=== PATIENT | female | born 2000 | race Caucasian/White ===

== ENCOUNTER 2022-06-19 14:30 | Outpatient (REF) | payer MEDICAID, SELFPAY ==
--- NOTE | ~2022-06-19 | US_ITS ---
EXAMINATION: US DIAGNOSTIC ULTRASOUND BREAST, RIGHT CLINICAL INFORMATION: 22-year-old with recent olive-sized palpable concern upper outer right breast for 1-2 weeks; no longer palpable. No discharge. No prior breast imaging. Family history breast cancer, grandmother. COMPARISON: None (current study represents initial baseline exam). TECHNIQUE: Ultrasound of the right breast is targeted to the area of clinical concern. Patient is able to point to the vicinity of recent palpable concern at time of imaging. Patient does not palpate the finding at time of visit. Grayscale imaging and color Doppler are performed without and with harmonics. FINDINGS: There is no focal suspicious finding. There is no cystic or solid mass, architectural abnormality, duct ectasia, or edema in the soft tissue planes. Results are discussed with the patient at time of visit.. US/US breast RT limited IMPRESSION: Normal study. ASSESSMENT: BI-RADS 1: Negative RECOMMENDATION: Patient should be managed based on the clinical impression, greatest medial.
== END 2022-06-19 14:31 | disposition home or self-care (01) ==
LOC: HO.MAMMO 14:30
PROVIDERS: Visit Provider Student in an Organized Health Care Education/Training Program
DX: N63.11 Unspecified lump in the right breast, upper outer quadrant (principal)
CPT/HCPCS: 76642

== ENCOUNTER 2022-12-16 14:34 | Outpatient (REF) | payer MEDICAID, SELFPAY ==
[2022-12-16 18:55] LABS: CT PCR DETECTED (Not Detect.); NG PCR NOT DETECTED (Not Detect.)
[2022-12-17 04:06] LABS: HBS Num1 85.15 mIU/mL (0-7.99); HBsAGNum1 0.43 S/CO (0.00-0.99); HIV AB/AG Nonreactive (Nonreactive); HIV Num 1 0.07 S/CO (0.00-0.99); Hepatitis B Surface Antigen Negative (Negative); ~HepC Num1 0.12 S/CO (0.00-0.79); ~Hepatitis B Surface Antibody REACTIVE (Nonreactive); ~Hepatitis C Antibody Nonreactive (Nonreactive)
[2022-12-17 04:39] LABS: Syphilis Screen Nonreactive (Nonreactive)
== END 2022-12-16 14:35 | disposition home or self-care (01) ==
LOC: HO.HHCL 14:34
PROVIDERS: Visit Provider Internal Medicine Geriatric Medicine
DX: Z11.3 Encounter for screening for infections with a predominantly sexual mode of transmission (principal); Z11.4 Encounter for screening for human immunodeficiency virus [HIV]; N89.8 Other specified noninflammatory disorders of vagina
CPT/HCPCS: 0353U; 86706; 86780; 86803; 87340; 87389

== ENCOUNTER 2023-01-16 17:49 | Outpatient (REF) | payer MEDICAID, SELFPAY | END 2023-01-16 17:50 | disposition home or self-care (01) | LOC: HO.HHCLNP 17:49 | PROVIDERS: Visit Provider Registered Nurse | DX: N89.8 Other specified noninflammatory disorders of vagina (principal) | CPT/HCPCS: 87480; 87510; 87660 ==

== ENCOUNTER 2023-02-10 19:48 | Outpatient (REF) | payer MEDICAID, SELFPAY ==
[2023-02-11 01:23] LABS: CT PCR DETECTED (Not Detect.); NG PCR NOT DETECTED (Not Detect.)
[2023-02-11 11:20] LABS: BV Int Neg Control Negative (Negative); BV Int Pos Control Positive (Positive)
== END 2023-02-10 19:49 | disposition home or self-care (01) ==
LOC: HO.HHCLNP 19:48
PROVIDERS: Visit Provider Internal Medicine Geriatric Medicine
DX: Z11.3 Encounter for screening for infections with a predominantly sexual mode of transmission (principal)
CPT/HCPCS: 0353U; 87480; 87510; 87660

== ENCOUNTER 2023-03-16 12:41 | Outpatient (REF) | payer MEDICAID, SELFPAY ==
[2023-03-17 10:58] LABS: CT PCR NOT DETECTED (Not Detect.); NG PCR NOT DETECTED (Not Detect.)
[2023-03-17 14:27] LABS: BV Int Neg Control Negative (Negative); BV Int Pos Control Positive (Positive)
[2023-03-18 10:04] LABS: RPR Rapid Plasma Reagin NON-REACTIVE (NON-REACTIVE)
[2023-03-19 13:33] LABS: HIV RNA PCR Qn Copies Not Detected Copies/mL; HIV RNA PCR Qn Log Copies Not Detected Log cps/mL
== END 2023-03-16 12:42 | disposition home or self-care (01) ==
LOC: HO.HHCL 12:41
PROVIDERS: Visit Provider Nurse Practitioner Family
DX: Z11.3 Encounter for screening for infections with a predominantly sexual mode of transmission (principal)
CPT/HCPCS: 0353U; 36415; 86592; 87480; 87510; 87536; 87660; 87900

== ENCOUNTER 2023-05-04 17:25 | Outpatient (REF) | payer MEDICAID, SELFPAY ==
[2023-05-05 12:30] LABS: BV Int Neg Control Negative (Negative); BV Int Pos Control Positive (Positive)
[2023-05-08 00:03] LABS: C. trachomatis RNA TMA NOT DETECTED (NOT DETECTED); N. gonorrhoeae RNA TMA NOT DETECTED (NOT DETECTED); Trichomonas (NAAT) NOT DETECTED (NOT DETECTED)
== END 2023-05-04 17:26 | disposition home or self-care (01) ==
LOC: HO.HHCLNP 17:25
PROVIDERS: Visit Provider Advanced Practice Midwife
DX: Z12.4 Encounter for screening for malignant neoplasm of cervix (principal); Z11.3 Encounter for screening for infections with a predominantly sexual mode of transmission
CPT/HCPCS: 36415; 87480; 87491; 87510; 87591; 87660; 87661; 88142

== ENCOUNTER 2023-06-15 09:48 | Outpatient (REF) | payer MEDICAID, SELFPAY ==
[2023-06-15 11:32] LABS: MANUAL DIFF FLAG NO
[2023-06-15 11:49] LABS: Basophils Percent Auto 0.3 % (0-2); Eosinophils Absolute Auto 0.4 X10*3/uL (0.0-0.4); Eosinophils Percent Auto 6.7 % (0-4); Hematocrit 36.9 % (37.0-47.0); Hemoglobin 11.6 g/dl (12.0-16.0); Imm Gran Abs Auto 0.01 X10*3/uL (0.00-0.03); Imm Gran Pct Auto 0.2 % (0.0-0.4); Lymphocytes Absolute Auto 2.4 X10*3/uL (1.2-4.9); Lymphocytes Percent Auto 40.3 % (20-40); Mean Corpuscular HGB Conc 31.4 g/dl (31.0-35.0); Mean Corpuscular Hemoglobin 23.1 pg (27.0-33.0); Mean Corpuscular Volume 73.4 fL (80.0-98.0); Monocytes Absolute Auto 0.4 X10*3/uL (0.1-1.2); Monocytes Percent Auto 5.9 % (2-11); Neutrophils Absolute Auto 2.8 x10*3/uL (2.0-8.3); Neutrophils Percent Auto 46.6 % (45-73); Platelet Count 224 X10*3/uL (160-400); Red Blood Count 5.03 X10*6/uL (4.20-5.50); Red Cell Distribution Width 13.3 % (11.0-16.0)
[2023-06-15 12:02] LABS: Alanine Aminotransferase 17 U/L (0-31); Albumin Level 4.9 g/dL (3.5-5.0); Alkaline Phosphatase 52 U/L (39-117); Anion Gap 12 (12-20); Aspartate Amino Transferase 19 U/L (5-31); Bilirubin Total 0.6 mg/dL (0.0-1.0); Blood Urea Nitrogen 14 mg/dL (9-16); Calcium 10.2 mg/dL (8.4-10.2); Carbon Dioxide 25 mmol/L (22-29); Chloride 108 mmol/L (96-108); Cholesterol 140 mg/dL (<200); Estimated Glomerular Filt Rate > 60; Glucose Random 93 mg/dL (60-115); HDL Cholesterol 46 mg/dL (>40); LDL Cholesterol Calculated 83 mg/dL (<100); Sodium 141 mmol/L (135-145); Total Protein 8.4 g/dL (6.5-8.0); Triglycerides 56 mg/dL (<150)
[2023-06-15 16:34] LABS: CT PCR NOT DETECTED (Not Detect.); NG PCR NOT DETECTED (Not Detect.)
== END 2023-06-15 09:49 | disposition home or self-care (01) ==
LOC: HO.HHCL 09:48
PROVIDERS: Visit Provider Nurse Practitioner Family
DX: Z00.00 Encounter for general adult medical examination without abnormal findings (principal); D64.9 Anemia, unspecified
CPT/HCPCS: 0353U; 36415; 80053; 80061; 85025

== ENCOUNTER 2023-08-03 13:19 | Outpatient (REF) | payer MEDICAID, SELFPAY ==
[2023-08-05 22:38] LABS: TS Negative Control Passed; TS Panel A 0; TS Panel B 0; TS Positive Control Passed; TSpotTB Negative (Negative)
== END 2023-08-03 13:20 | disposition home or self-care (01) ==
LOC: HO.HHCL 13:19
PROVIDERS: Visit Provider Nurse Practitioner Family
DX: Z11.1 Encounter for screening for respiratory tuberculosis (principal)
CPT/HCPCS: 36415; 86481

== ENCOUNTER 2023-09-25 11:45 | Outpatient (REF) | payer MEDICAID, SELFPAY ==
[2023-09-25 14:49] LABS: CT PCR NOT DETECTED (Not Detect.); NG PCR NOT DETECTED (Not Detect.)
[2023-09-25 17:22] LABS: Bacterial Vaginosis PCR NEGATIVE (Negative); Candida Group PCR DETECTED (Not Detect); Candida glab krusei PCR NOT DETECTED (Not Detect); Trichomonas vaginalis PCR NOT DETECTED (Not Detect)
[2023-09-28 10:39] LABS: RPR Rapid Plasma Reagin NON-REACTIVE (NON-REACTIVE)
[2023-09-30 07:59] LABS: HIV RNA PCR Qn Copies Not Detected Copies/mL; HIV RNA PCR Qn Log Copies Not Detected Log cps/mL
== END 2023-09-25 11:46 | disposition home or self-care (01) ==
LOC: HO.HHCL 11:45
PROVIDERS: Visit Provider Nurse Practitioner Family
DX: N89.8 Other specified noninflammatory disorders of vagina (principal)
CPT/HCPCS: 0352U; 0353U; 36415; 86592; 87536; 87900

== ENCOUNTER 2023-11-02 18:16 | Outpatient (REF) | payer MEDICAID, SELFPAY ==
[2023-11-03 02:18] LABS: CT PCR NOT DETECTED (Not Detect.); NG PCR NOT DETECTED (Not Detect.)
== END 2023-11-02 18:17 | disposition home or self-care (01) ==
LOC: HO.HHCLNP 18:16
PROVIDERS: Visit Provider Nurse Practitioner Family
DX: N76.1 Subacute and chronic vaginitis (principal)
CPT/HCPCS: 0352U; 36415; 87491; 87591

== ENCOUNTER 2023-11-17 17:35 | Outpatient (REF) | payer MEDICAID, SELFPAY ==
[2023-11-17 19:16] LABS: Bacterial Vaginosis PCR POSITIVE (Negative); Candida Group PCR NOT DETECTED (Not Detect); Candida glab krusei PCR NOT DETECTED (Not Detect); Trichomonas vaginalis PCR NOT DETECTED (Not Detect)
== END 2023-11-17 17:36 | disposition home or self-care (01) ==
LOC: HO.HHCLNP 17:35
PROVIDERS: Visit Provider Nurse Practitioner Family
DX: N76.1 Subacute and chronic vaginitis (principal)
CPT/HCPCS: 0352U

== ENCOUNTER 2023-12-08 09:18 | Outpatient (AMB) | payer MEDICAID, SELFPAY ==
--- NOTE | 2023-12-08 09:18 | A.OFFVIS_ITS ---
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 Pt states she has them on both legs but states her left leg is worse than her right. Pt states after being on her feet for longer periods of time her legs get tired and painful. Pt denies wearing compression stockings. 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 Complaints include pain over varicosities, swelling of lower extremities, It has been affecting there daily activities including walking. It is noted more so in left leg. She notes significant spider telangiectasias in bilateral posterior aspects of her calf Patient denies any previous venous surgery or injections. Patient denies any history of DVT/ PE. Patient denies any history of phlebitis. Trial of compression includes - [id number] They now present for vascular evaluation regarding their varicose veins. Review of Systems Const All systems reviewed & are unremarkable except as noted in HPI and below Reports no additional complaints ENT Reports Normal hearing present Card Denies chest pain, Denies chest pain at rest, Denies chest pain with activity and Denies pedal edema Resp Denies cough GI Denies abdominal pain Musc Denies abnormal gait, Denies muscle cramps and Denies radiating pain into limb Skin/Breast Denies skin ulcer and Denies wounds Neuro Reports Normal hearing present and Denies abnormal gait Psych Reports no additional complaints Physical Exam Vital Signs: Last Vital Signs BP 118/68 12/08/23 09:38 BMI result Body Mass Index 23.8 Const General: cooperative, healthy appearing and comfortable Orientation/consciousness: oriented to person, oriented to place and oriented to time HEENT Head: Yes normal to inspection Neck Neck: Yes normal visual inspection Carotids: no bruits Chest Chest palpation & inspection: normal inspection of the chest Resp Effort & Inspection: normal respiratory effort and able to speak in complete sentences Auscultation: clear to auscultation bilaterally, no crackles, no rales, no rhonchi and no wheezes Cardio Rate: regular rate Rhythm: regular rhythm Heart sounds: S1 normal heart sound present and S2 normal heart sound present Bruits: no carotid bruits Peripheral pulses: Peripheral pulses 2+ throughout GI Inspection: Yes normal to inspection Skin Wounds: no wounds Hair: normal Neuro General: oriented to person, oriented to place and oriented to time Cranial nerves: Yes CN's II-XII intact bilaterally and Yes Normal hearing present Cognition (Neuro): normal cognition Motor exam (neuro): 5/5 motor strength present throughout Extrem Other: venous exam: +1 edema with spider telangiectasias and posterior calf General: No clubbing, No cyanosis and Yes edema Psych Appearance: grossly normal Mental Status: mental status grossly normal Speech and movement: Normal speech and movement present Assessment & Plan Assessment & Plan (1) Varicose veins of right lower extremity with inflammation: Code(s): I83.11 - Varicose veins of right lower extremity with inflammation Category: Medical Plan: In short patient has very mild venous disease. The majority of what I appreciate a spider telangiectasias. She does report some edema for that I have taken the liberty of ordering venous insufficiency testing to rule that out. Should that prove to be negative the spider telangiectasias would be more cosmetic in nature. We did discuss routine conservative measures including compression elevation and exercise. She will follow up with us after venous insufficiency testing. Thank you for allowing us to assist in her care Orders: Orders US venous duplex LE BI 1 Week I83.11 - Varicose veins of right lower extremity with inflammation Coding Level of Care Code New Pt Level 4 (60656) Diagnoses Varicose veins of right lower extremity with inflammation I83.11
[2023-12-08 09:38] VITALS: BP 118/68; BMI 23.8
== END 2023-12-08 09:51 | disposition home or self-care (01) ==
PROVIDERS: Visit Provider Surgery Vascular Surgery
DX: I83.11 Varicose veins of right lower extremity with inflammation (principal)
CPT/HCPCS: 99203

== ENCOUNTER → 2023-12-08 09:18 | Outpatient (BNVA) | payer MEDICAID, SELFPAY | PROVIDERS: Visit Provider Surgery Vascular Surgery | DX: I83.11 Varicose veins of right lower extremity with inflammation (principal) | CPT/HCPCS: 99202 ==

== ENCOUNTER 2023-12-30 17:46 | Outpatient (REF) | payer MEDICAID, SELFPAY ==
[2023-12-30 18:55] LABS: Appearance Urine Cloudy; Color Urine Yellow; Glucose Urine UA Negative (Negative); Leukocyte Esterase Urine Small (1+) (Negative); Nitrite Urine Negative (Negative); PH 5.5 (5.0-9.0); UMIC TRIGGER UACC YES; Urine Blood Negative (Negative); Urine Ketones Negative (Negative); Urine Protein Negative (Neg-Trace)
[2023-12-30 19:26] LABS: Bacteria Urine None Seen (None Seen); Hyaline Casts Urine 0-2 /LPF (0-2); RBC Urine 0-2 /HPF (0-2); Squamous Epithelial Cell Urine 0-2 /HPF (0-2); UACC Culture Trigger YES; WBC Urine 0-5 /HPF (0-5)
[2023-12-31 04:03] LABS: CT PCR NOT DETECTED (Not Detect.); NG PCR NOT DETECTED (Not Detect.)
[2023-12-31 10:49] LABS: Bacterial Vaginosis PCR POSITIVE (Negative); Candida Group PCR NOT DETECTED (Not Detect); Candida glab krusei PCR NOT DETECTED (Not Detect); Trichomonas vaginalis PCR NOT DETECTED (Not Detect)
== END 2023-12-30 17:47 | disposition home or self-care (01) ==
LOC: HO.HHCLNP 17:46
PROVIDERS: Visit Provider Registered Nurse
DX: N94.9 Unspecified condition associated with female genital organs and menstrual cycle (principal); R39.9 Unspecified symptoms and signs involving the genitourinary system
CPT/HCPCS: 0352U; 81001; 87086; 87491; 87591

== ENCOUNTER 2024-01-04 11:12 | Outpatient (REF) | payer MEDICAID, SELFPAY ==
[2024-01-05 08:21] LABS: HIV AB/AG Nonreactive (Nonreactive); HIV Num 1 0.05 S/CO (0.00-0.99)
[2024-01-05 15:48] LABS: HCV Log PCR <1.18 NOT DETECTED Log IU/mL (NOT DETECTED); HepC Viral Load <15 NOT DETECTED IU/mL (NOT DETECTED)
[2024-01-06 11:14] LABS: RPR Rapid Plasma Reagin NON-REACTIVE (NON-REACTIVE)
== END 2024-01-04 11:13 | disposition home or self-care (01) ==
LOC: HO.HHCL 11:12
PROVIDERS: Visit Provider Registered Nurse
DX: N94.9 Unspecified condition associated with female genital organs and menstrual cycle (principal)
CPT/HCPCS: 36415; 86592; 87389; 87522

== ENCOUNTER 2024-02-08 18:35 | Outpatient (REF) | payer MEDICAID, SELFPAY ==
[2024-02-09 10:53] LABS: Bacterial Vaginosis PCR POSITIVE (Negative); Candida Group PCR NOT DETECTED (Not Detect); Candida glab krusei PCR NOT DETECTED (Not Detect); Trichomonas vaginalis PCR NOT DETECTED (Not Detect)
== END 2024-02-08 18:36 | disposition home or self-care (01) ==
LOC: HO.HHCLNP 18:35
PROVIDERS: Visit Provider Advanced Practice Midwife
DX: N76.0 Acute vaginitis (principal); B96.89 Other specified bacterial agents as the cause of diseases classified elsewhere
CPT/HCPCS: 0352U

== ENCOUNTER 2024-04-25 18:04 | Outpatient (REF) | payer MEDICAID, SELFPAY ==
[2024-04-26 13:06] LABS: Bacterial Vaginosis PCR POSITIVE (Negative); Candida Group PCR NOT DETECTED (Not Detect); Candida glab krusei PCR NOT DETECTED (Not Detect); Trichomonas vaginalis PCR NOT DETECTED (Not Detect)
== END 2024-04-25 18:05 | disposition home or self-care (01) ==
LOC: HO.HHCLNP 18:04
PROVIDERS: Visit Provider Advanced Practice Midwife
DX: N76.0 Acute vaginitis (principal); B96.89 Other specified bacterial agents as the cause of diseases classified elsewhere
CPT/HCPCS: 81515

== ENCOUNTER 2024-08-22 12:19 | Outpatient (REF) | payer MEDICAID, SELFPAY ==
--- OUTSIDE RECORDS SUMMARY | 2024-08-22 12:46 | XMS_ITS | Encounter Summary ---
Author Organization [employer] Address [address] [facility] 7t [place] [address] Care Team Providers Care Watch Engine Operator Name Role Phone Desmond Nellie WAITER/WAITRESS COUNTER Primary Care Provider [phone] Estella Kelly SENIOR ASSOCIATE Primary Care Provider [phone] Reason for Visit * Reason Comments Med Refill Encounter Details Date Type Department Care Team ([facility] st Contact Info) Description 10/14/2023 Refill [facility] [address] [place] [address] Name, MD Mark [address] [place] [address] Social History Tobacco Use Types Packs/Day Years Used Date Smoking Tobacco: Never Passive Smoke Exposure: Never Smokeless Tobacco: Never Alcohol Use Standard Drinks/Week Comments Never 0 (1 standard drink = 0.6 oz pur e alcohol) Depression Answer Date Recorded Patient Health Questionnaire-9 Score 0 06/15/2023 Patient Health Questionnaire-9 Score 0 06/15/2023 Last PHQ-9: Questionnaire Data Not on file 0 06/15/2023 Housing Stability Answer Date Recorded What is your housing situation today? I have valeria shukla 01/30/[address] you li ve. Do you have problems with any of the following? None of the above 01/30/2023 Food Insecurity Answer Date Recorded Within the past 12 months, y ou worried that your food would run out before you got money to buy more: Never True 01/30/2023 Within the past 12 months,th e food you bought just didn't last and you didn't have enough money to get more: Never True Transportation Answer Date Recorded In the past 12 months, has l ack of transportation kept you from medical appts, meetings, work or from getting things needed for daily living? No 01/30/2023 Utilities Answer Date Recorded In the past 12 months, has t he electric, gas, oil or water company threatened to shut off services in your home? No 01/30/2023 Depression Answer Date Recorded Patient Health Questionnaire-2 Score 0 06/15/2023 Comments No Sex and Gender Information Value Date Recorded Sex Assigned at Female 02/10/2022 10:18 AM EDT Legal Sex Female 10:18 AM EDT Gender Identity Female 02/10/2022 10:18 AM EDT Sexual Orientation Choose not to disclose 2021 10:18 AM EDT documented as of this encounter Plan of Treatment Upcoming Encounters Date Type Department Care Team (Late st Contact Info) Description 10/07/2024 3:30 PM EDT Office Visit [address] [address] Estella Kelly NP [address] [place] [address] 10/28/2024 10:00 AM EDT Clinical Support [address] [address] documented as of this encounter Visit Diagnoses Not on filedocumented in this encounter Additional Health Concerns Assessment Noted Time PHQ-9 Depression Total Score: 0 06/15/19 9:10 AM EST documented as of this encounter Care Teams Watch Engine Operator Relationship Specialty Start Date End Date Nellie Logan FNP [address] [place] [address] PCP - General Family Medicine 01/13/23 12/14/23 Estella Kelly NP [address] [place] [address] PCP - General Family Medicine 12/15/23 documented as of this encounter
--- OUTSIDE RECORDS SUMMARY | 2024-08-22 12:47 | XMS_ITS | Encounter Summary ---
Author Organization [employer] Address [address] [facility] 7t [place] [address] Care Team Providers Care Ring Maker Name Role Phone Estella Kelly NP Primary Care Provider [phone] Reason for Visit * Reason Onset Date Comments Med Refill 05/15/2024 Encounter Details Date Type Department Care Team (Late st Contact Info) Description 05/15/2024 Refill [facility] [address] [place] [address] Estella Kelly NP 230 [place] [address] Social History Tobacco Use Types Packs/Day Years [...] Description 10/07/2024 3:30 PM EDT Office Visit [address] [address] Estella Kelly NP [address] [place] [address] 10/28/2024 10:00 AM EDT Clinical Support [address] [address] documented as of this encounter Visit Diagnoses Not on filedocumented in this encounter Additional Health Concerns Assessment Noted Time PHQ-9 Depression Total Score: 0 06/15/19 9:10 AM EST documented as of this encounter Care Teams Ring Maker Relationship Specialty Start Date End Date Estella Kelly NP [address] [place] [address] PCP - General Family Medicine 12/15/23 documented as of this encounter
--- OUTSIDE RECORDS SUMMARY | 2024-08-22 12:47 | XMS_ITS | Encounter Summary ---
Author Organization [employer] Address [address] [facility] [address] 7t [place] [address] Care Team Providers Care Candy Spreader Helper Name Role Phone Estella Kelly NP Primary Care Provider [phone] Encounter Details Date Type Department Care Team ([facility] st Contact Info) Description 08/12/2024 Orders Only [facility] 230 [place], [place] [phone] Estella Kelly NP 230 [place], [place] [phone] Uses control (Primary Dx) Social History Tobacco Use Types Packs/Day Years [...] Patient Health Questionnaire-2 Score 0 06/15/2023 Comments Unknown Sex and Gender Information Value Date Recorded [...] Description 10/07/2024 3:30 PM EDT Office Visit [address] [address] Estella Kelly NP [address] [place] [address] 10/28/2024 10:00 AM EDT Clinical Support [address] [address] documented as of this encounter Visit Diagnoses Diagnosis Uses control- Primary documented in this encounter Additional Health Concerns Assessment Noted Time PHQ-9 Depression Total Score: 0 06/15/19 9:10 AM EST documented as of this encounter Care Teams Candy Spreader Helper Relationship Specialty Start Date End Date Estella Kelly NP [address] [place] [address] PCP - General Family Medicine 12/15/23 documented as of this encounter
--- OUTSIDE RECORDS SUMMARY | 2024-08-22 12:47 | XMS_ITS | Encounter Summary ---
Author Organization [employer] Address [address] [facility] 7t [place] [address] Care Team Providers Care Structural Steel Equipment Erector Name Role Phone Estella Kelly NP Primary Care Provider [phone] Reason for Visit * Reason Comments Med Refill Encounter Details Date Type Department Care Team ([facility] st Contact Info) Description 02/27/2024 Refill [facility] 230 [place], [place] [phone] Estella Kelly NP 230 [place] [address] Social History Tobacco Use Types Packs/Day Years [...] AM EDT documented as of this encounter Miscellaneous Notes * Telephone Encounter - Estella Kelly NP - 03/02/2024 5:19 PM EST Approving, but needs appt for additional refills. documented in this encounter Plan of Treatment Upcoming Encounters Date Type Department Care Team (Late st Contact Info) Description 10/07/2024 3:30 PM EDT Office Visit [facility] [address] [place] [address] Estella Kelly NP [address] [place] [address] 10/28/2024 10:00 AM EDT Clinical Support [facility] [address] [place] [address] documented as of this encounter Visit Diagnoses Not on filedocumented in this encounter Additional Health Concerns Assessment Noted Time PHQ-9 Depression Total Score: 0 06/15/19 9:10 AM EST documented as of this encounter Care Teams Structural Steel Equipment Erector Relationship Specialty Start Date End Date Estella Kelly NP [address] [place] [address] PCP - General Family Medicine 12/15/23 documented as of this encounter
--- OUTSIDE RECORDS SUMMARY | 2024-08-22 12:47 | XMS_ITS | Encounter Summary ---
Author Organization [employer] Address [address] [facility] 7t [place] [address] Care Team Providers Care Fur Dyer Name Role Phone Nellie Logan Primary Care Provider [phone] Estella Kelly NP Primary Care Provider [phone] Encounter Details Date Type Department Care Team ([facility] st Contact Info) Description 06/17/2023 Orders Only [facility] [address] [place] [address] Nellie Logan FNP [address] [place] [address] Social History Tobacco Use Types Packs/Day Years [...] Description 10/07/2024 3:30 PM EDT Office Visit [address] [address] Estella Kelly NP [address] [place] [address] 10/28/2024 10:00 AM EDT Clinical Support [address] [address] documented as of this encounter Visit Diagnoses Not on filedocumented in this encounter Additional Health Concerns Assessment Noted Time PHQ-9 Depression Total Score: 0 06/15/19 9:10 AM EST documented as of this encounter Care Teams Fur Dyer Relationship Specialty Start Date End Date Nellie Logan FNP [address] [place] [address] PCP - General Family Medicine 01/13/23 12/14/23 Estella Kelly NP [address] [place] [address] PCP - General Family Medicine 12/15/23 documented as of this encounter
--- OUTSIDE RECORDS SUMMARY | 2024-08-22 12:47 | XMS_ITS | Encounter Summary ---
Author Organization [employer] Address [address] [facility] 7t [place] [address] Care Team Providers Care Nurseryman Assistant Name Role Phone Nellie Logan Primary Care Provider [phone] Estella Kelly NP Primary Care Provider [phone] Encounter Details Date Type Department Care Team ([facility] st Contact Info) Description 09/28/2023 Orders Only [facility] [address] [place] [address] Nellie Logan FNP [address] [place] [address] Social History Tobacco Use Types Packs/Day Years [...] Description 10/07/2024 3:30 PM EDT Office Visit [address] [address] Estella Kelly NP [address] [place] [address] 10/28/2024 10:00 AM EDT Clinical Support [address] [address] documented as of this encounter Visit Diagnoses Not on filedocumented in this encounter Additional Health Concerns Assessment Noted Time PHQ-9 Depression Total Score: 0 06/15/19 9:10 AM EST documented as of this encounter Care Teams Nurseryman Assistant Relationship Specialty Start Date End Date Nellie Logan FNP [address] [place] [address] PCP - General Family Medicine 01/13/23 12/14/23 Estella Kelly NP [address] [place] [address] PCP - General Family Medicine 12/15/23 documented as of this encounter
--- OUTSIDE RECORDS SUMMARY | 2024-08-22 12:47 | XMS_ITS | Encounter Summary ---
Author Organization [employer] Address [address] [facility] 7t [place] [address] Care Team Providers Care Group Home Supervisor Name Role Phone Nellie Logan Primary Care Provider [phone] Estella Kelly NP Primary Care Provider [phone] Encounter Details Date Type Department Care Team ([facility] st Contact Info) Description 03/18/2023 Orders Only [facility] [address] [place] [address] Nellie Logan FNP [address] [place] [address] Social History Tobacco Use Types Packs/Day Years Used Date Smoking Tobacco: Never Passive Smoke Exposure: Never Smokeless Tobacco: Never Alcohol Use Standard Drinks/Week Comments Never 0 (1 standard drink = 0.6 oz pur e alcohol) Depression Answer Date Recorded Patient Health Questionnaire-9 Score 0 12/16/2022 Housing Stability Answer Date Recorded What is [...] Date Recorded Patient Health Questionnaire-2 Score 0 12/16/2022 Comments Unknown Sex and Gender Information Value [...] Description 10/07/2024 3:30 PM EDT Office Visit [address] [address] Estella Kelly NP 230 [place] [address] 10/28/2024 10:00 AM EDT Clinical Support [address] [address] documented as of this encounter Visit Diagnoses Not on filedocumented in this encounter Additional Health Concerns Assessment Noted Time PHQ-9 Depression Total Score: 0 12/17/19 23 1:55 PM EDT documented as of this encounter Care Teams Group Home Supervisor Relationship Specialty Start Date End Date Nellie Logan FNP [address] [place] [address] PCP - General Family Medicine 01/13/23 12/14/23 Estella Kelly NP [address] [place] [address] PCP - General Family Medicine 12/15/23 documented as of this encounter
--- OUTSIDE RECORDS SUMMARY | 2024-08-22 12:47 | XMS_ITS | Encounter Summary ---
Author Organization [employer] Address [address] [facility] 7t [place] [address] Care Team Providers Care Banking Assistant Name Role Phone Estella Kelly NP Primary Care Provider [phone] Reason for Visit * Reason Onset Date Comments chartprep 08/19/2024 Encounter Details Date Type Department Care Team (Late st Contact Info) Description 08/19/2024 Telephone [facility] [address] [place] [address] Wilfredo Canchola MA chartprep Social History Tobacco Use Types Packs/Day Years [...] encounter Miscellaneous Notes * Telephone Encounter - Wilfredo Canchola MA - 08/19/2024 11:25 AM EDT Chart Prep Labs: done Images: done Referrals: complete appt 12/08/23 Dr. Micah Dockery Vaccines due: Covid, Flu, and Tdap Screenings: not applicable Overdue care gaps: PHQ-9,BETTY-7, oral health,disability screening,SBIRT,SDOH documented in this encounter Plan of Treatment Upcoming Encounters Date Type Department Care Team (Late st Contact Info) Description 10/07/2024 3:30 PM EDT Office Visit [facility] [address] [place] [address] Estella Kelly NP [address] [place] [address] 10/28/2024 10:00 AM EDT Clinical Support [facility] [address] [place] [address] documented as of this encounter Visit Diagnoses Not on filedocumented in this encounter Additional Health Concerns Assessment Noted Time PHQ-9 Depression Total Score: 0 06/15/19 9:10 AM EST documented as of this encounter Care Teams Banking Assistant Relationship Specialty Start Date End Date Estella Kelly NP [address] [place] [address] PCP - General Family Medicine 12/15/23 documented as of this encounter
--- OUTSIDE RECORDS SUMMARY | 2024-08-22 12:47 | XMS_ITS | Encounter Summary ---
Author Organization [employer] Address [address] [facility] 7t [place] [address] Care Team Providers Care Warehouse Receiving Clerk Name Role Phone Estella Kelly NP Primary Care Provider [phone] Encounter Details Date Type Department Care Team ([facility] st Contact Info) Description 08/12/2024 Orders Only [facility] 230 [place], [place] [phone] Estella Kelly NP 230 [place], [place] [phone] Encounter for contraceptive management, unspecified type (Primary Dx) Social History Tobacco Use Types [...] Description 10/07/2024 3:30 PM EDT Office Visit [address] [address] Estella Kelly NP [address] [place] [address] 10/28/2024 10:00 AM EDT Clinical Support [address] [address] documented as of this encounter Visit Diagnoses Diagnosis Encounter for contraceptive management, unspecified type- Primary documented in this encounter Additional Health Concerns Assessment Noted Time PHQ-9 Depression Total Score: 0 06/15/19 9:10 AM EST documented as of this encounter Care Teams Warehouse Receiving Clerk Relationship Specialty Start Date End Date Estella Kelly NP [address] [place] [address] PCP - General Family Medicine 12/15/23 documented as of this encounter
--- OUTSIDE RECORDS SUMMARY | 2024-08-22 12:47 | XMS_ITS | Encounter Summary ---
Author Organization [employer] Address [address] [place] [address] [address] [place] [address] Care Team Providers Care Admitting Clerk Name Role Phone Estella Kelly NP Primary Care Provider [phone] Reason for Visit * Reason Comments Transfer patient Encounter Details Date Type Department Care Team (Latest Contact Info) Description 08/22/2024 10:30 AM EDT Office Visit [facility] MEDICINE [address] [place] [address] Estella Kelly NP [address] [place] [address] Chronic nonintractable headache, unspecified headache type (Primary Dx); Routine screening for STI (sexually transmitted infection); Mild intermittent asthma without complication; Encounter for immunization; Bacterial vaginosis; Encounter to establish care; Varicose veins of both lower extremities with pain; Dietary counseling; Exercise counseling; Mixed anxiety and depressive disorder; Bilateral low back pain without sciatica, unspecified chronicity; Breast tenderness in female Social History Tobacco Use Types Packs/Day Years Used Date Smoking Tobacco: Never Passive Smoke Exposure: Never Smokeless Tobacco: Never Alcohol Use Standard Drinks/Week Comments Yes 0 (1 standard drink = 0.6 oz pure alcohol) 3 times year with major holidays Alcohol Answer Date Recorded How often do you have a drink containing alcohol ? 0 08/22/2024 How many drinks containing a lcohol do you have on a typical day when you are drinking? 0 08/22/2024 How often do you have six or more drinks on one occasion? 0 08/22/2024 Depression Answer Date Recorded Patient Health Questionnaire-9 Score 12 08/22/2024 Patient Health Questionnaire-9 Score 12 08/22/2024 Last PHQ-9: Questionnaire Data Not on file 0 08/22/2024 Housing Stability Answer Date Recorded What is your housing situation today? I have valeria shukla 08/22/[address] you li ve. Do you have problems with any of the following? None of the above 08/22/2024 Food Insecurity Answer Date Recorded Within the past 12 months, y ou worried that your food would run out before you got money to buy more: Never True 08/22/2024 Within the past 12 months,th e food you bought just didn't last and you didn't have enough money to get more: Never True 03/2025 Transportation Answer Date Recorded In the past 12 months, has l ack of transportation kept you from medical appts, meetings, work or from getting things needed for daily living? No 08/22/2024 Utilities Answer Date Recorded In the past 12 months, has t he electric, gas, oil or water company threatened to shut off services in your home? No 08/22/2024 Depression Answer Date Recorded Patient Health Questionnaire-2 Score 4 08/22/2024 Internet Access Answer Date Recorded Internet Access Q1 Yes 08/22/2024 Internet Access Q2 Not on file 08/22/2024 Comments Unknown Sex and Gender Information Value Date Recorded Sex Assigned at Female 02/10/2022 10:18 AM EDT Legal Sex Female 10:18 AM EDT Gender Identity Female 02/10/2022 10:18 AM EDT Sexual Orientation Choose not to disclose 2021 10:18 AM EDT documented as of this encounter Last Filed Vital Signs Vital Sign Reading Time Taken Comments Blood Pressure 115/67 08/22/2024 10:39 AM EDT Pulse 90 08/22/2024 10:39 AM EDT Temperature 36.6 ??C (97.9 ??F) 08/22/2024 1 0:39 AM EDT Respiratory Rate 22 08/22/2024 10:3 9 AM EDT Oxygen Saturation 98% 08/22/2024 10: 39 AM EDT Inhaled Oxygen Concentration - - Weight 72.5 kg (159 lb 12.8 oz) 025 10:39 AM EDT Height 157.5 cm (5' 2 ) 08/22/2024 10:3 9 AM EDT Body Mass Index 29.23 08/22/2024 10:39 AM EDT documented in this encounter Progress Notes * Estella Kelly NP - 08/22/2024 10:30 AM EDT Subjective Patient ID: Yuki Mcgill is a 24 y.o. female who presents for transfer patient visit. Denies recentillness, injury or hospitalization. Previous PCP Nellie FELIX. HPI Concerns: 1) Has been having asthma flares in recent weeks. Has wheezing and shortness of breath 2) bilateral breast tenderness. Noticed it a few months ago. Denies evidence of lumps or bumps. 3) Low back pain that is intermittent. No GI/ symptoms 4) increase in chronic headaches. Intermittent response to ibuprofen. Occurs about 3-4x a week. Light is very bothersome. No confusion, nausea, vomiting 5) seeking dental referral for wisdom teeth removal. Advised to go up to dental clinic on 4th floorfor appointment 6) would like STI testing along with BV and yeast testing PMHx: Past Medical History: Diagnosis Date Alpha thalassemia ([facility]) Anxiety Asthma Vitamin D deficiency PsurgHX: History reviewed. No pertinent surgical history. 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 Has been eating out a lot. Drinks coke often, drinks water Exercise: moves a lot at work but no intentional exercise Substance use: declines Sexual activity: male partner Last period: Patient's last menstrual period was 07/18/2024 (approximate). Bled 2-3 weeks; flow interchangeable from pantyliner to frequent pad changes Last PAP: Apr 2023 NILM control method: depo injections OB Hx: OB History Para Term AB Living 0 0 0 0 0 0 SAB IAB Ectopic Multiple Live Births 0 0 0 0 0 Mental health: really bad always feels anxious and depressed. Takes sertraline as needed. Does not want to take pills. Does not have coping mechanism. Forces herself to get out of bed because she needs to work. Mom is helpful in calming her down when she is available. Does not have someone to talk to. Had therapy in the past, but felt betrayed by them. Willing to try again as she's older Routine Health Maintenance Optometry: received glasses in Apr. Established with [facility] vision Dental: was established with [facility] dental as as child. Requesting referral for wisdom teeth removal Breast CA: not due for routine screening mammograms starting at 45 y/o per [facility] Cervical CA: Apr 2023 NILM; repeat 3 years (2026 per USPTF guidelines Lung CA: N/A never smoker Outstanding IZ: Tdap, Hep A, COVID Family History Problem Relation Name Age of Onset Asthma Mother Depression Mother Arthritis Mother Depression Father Arthritis Mother's Sister Asthma Mother's Sister Depression Maternal Grandmother Lupus Maternal Grandmother Arthritis Maternal Grandmother Asthma Maternal Grandmother Review of Systems Constitutional: Negative. Negative for chills and fever. Respiratory: Negative for chest tightness and shortness of breath. Cardiovascular: Negative for chest pain. Gastrointestinal: Negative for abdominal pain, constipation, diarrhea and nausea. Genitourinary: Negative for dysuria. Musculoskeletal: Negative for arthralgias, back pain, myalgias and neck pain. Skin: Negative. Negative for rash and wound. Neurological: Positive for headaches. Negative for weakness and light-headedness. Psychiatric/Behavioral: Positive for behavioral problems. Negative for confusion, decreased concentration and suicidal ideas. The patient is nervous/anxious. Objective: Visit Vitals BP 115/67 (BP Location: Left arm, Patient Position: Sitting, BP Cuff Size: Adult) Pulse 90 Temp 97.9 ??F (36.6 ??C) (Oral) Resp 22 Ht 5' 2 (1.575 m) Wt 159 lb 12.8 oz (72.5 kg) LMP 07/18/2024 (Approximate) SpO2 98% BMI 29.23 kg/m?? OB Status Unknown Smoking Status Never BSA 1.78 m?? Patient Active Problem List Diagnosis Alpha thalassemia (CMS/HCC) Anemia Difficulty sleeping Vitamin D deficiency Subacute vaginitis Bacterial vaginosis Mild intermittent asthma without complication Chronic nonintractable headache Encounter to establish care Varicose veins of both lower extremities with pain Mixed anxiety and depressive disorder Breast tenderness in female Current Outpatient Medications: albuterol 108 (90 Base) MCG/ACT inhaler, Inhale 2 puffs every 6 (six) hours if needed for wheezing., Disp: 18 g, Rfl: 11 ibuprofen 400 MG tablet, TAKE 1 TABLET BY MOUTH EVERY 6 HOURS NEEDED FOR PAIN, Disp: 30 tablet, Rfl: 0 medroxyPROGESTERone (Depo-Provera) 150 MG/ML injection, Inject 1 mL (150 mg) into the muscle every 3 (three) months., Disp: 1 mL, Rfl: 3 medroxyPROGESTERone (Depo-Provera) 150 MG/ML injection, Inject 1 mL (150 mg) into the muscle every 3 (three) months., Disp: 1 mL, Rfl: 3 naproxen (Naprosyn) 500 MG tablet, Take 1 tablet (500 mg) by mouth 2 times daily. Take with sumatriptan, Disp: 60 tablet, Rfl: 1 sertraline (Zoloft) 25 MG tablet, TAKE 2 TABLETS BY MOUTH EVERY DAY, Disp: 60 tablet, Rfl: 1 SUMAtriptan (Imitrex) 25 MG tablet, Take 1 tablet (25 mg) by mouth 1 (one) time if needed for migraine for up to 18 doses. May repeat dose once in 2 hours if no relief. Do not exceed 2 doses in 24 hours. Lie down for at least 30 mins after taking Take with naproxen, Disp: 9 tablet, Rfl: 1 traZODone (Desyrel) 100 MG tablet, TAKE 1 TABLET BY MOUTH AT BEDTIME, Disp: 30 tablet, Rfl: 1 Immunization History Administered Date(s) Administered DTaP 2002, 2002, 2002, 05/31/2003, 05/31/2005, 02/23/2006 HPV 9-Valent 12/05/2014 HPV, Quadrivalent 04/26/2014, 06/27/2014 Hep A, Adult 08/22/2024 Hep A, ped/adol, 2 dose 04/26/2014, 03/16/2023 Hep A, ped/adol, 3 dose 06/04/2012 Hep B, Adolescent or Pediatric 2002, 2002, 2002, 2002, 2002 Hib (HbOC) 2002, 2002, 05/31/2003 IPV 2002, 2002, 2002, 02/23/2006 Influenza injectable quadrivalent preservative free 04/26/2014, 01/08/2018, 01/21/2019, 03/16/2020,03/16/2023 Influenza, IIV3, injectable 02/23/2006, 04/20/2009, 05/10/2010 MMR 03/14/2003, 02/23/2006 MMRV 02/23/2006 Meningococcal MCV4P [id number] 04/26/2014, 01/21/2019 Moderna Covid-19 Vaccine 12+ 08/04/2020, 09/01/2020, 05/29/2021 Moderna Covid-19 Vaccine 6+ Bivalent 07/18/2022 Novel [id number], preservative-free 02/24/2009, 04/20/2009 Pneumococcal Conjugate PCV 7 2002, 2002, 2002 Tdap 04/26/2014, 08/22/2024 Varicella 2002, 03/14/2003, 02/23/2006 Physical Exam Vitals reviewed. Constitutional: General: She is not in acute distress. Appearance: Normal appearance. She is not ill-appearing. HENT: Head: Normocephalic and atraumatic. Right Ear: External ear normal. Left Ear: External ear normal. Nose: Nose normal. Eyes: General: No scleral icterus. Extraocular Movements: Extraocular movements intact. Cardiovascular: Rate and Rhythm: Normal rate and regular rhythm. Pulses: Normal pulses. Heart sounds: Normal heart sounds. Pulmonary: Effort: Pulmonary effort is normal. No respiratory distress. Breath sounds: Normal breath sounds. Musculoskeletal: General: Normal range of motion. Cervical back: Normal range of motion. Skin: General: Skin is warm and dry. Neurological: General: No focal deficit present. Mental Status: She is alert and oriented to person, place, and time. Cranial Nerves: Cranial nerves 2-12 are intact. Sensory: Sensation is intact. Motor: Motor function is intact. Gait: Gait normal. Psychiatric: Mood and Affect: Mood normal. Behavior: Behavior normal. Assessment/Plan: Problem List Items Addressed This Visit Bacterial vaginosis -recurrent -currently on 12 week course of metronidazole topical -testing ordered as per patient request Relevant Orders Bacterial Vaginosis, Yeast and Trich Mild intermittent asthma without complication -albuterol inhaler rx'ed Relevant Medications albuterol 108 (90 Base) MCG/ACT inhaler Chronic nonintractable headache - Primary -advised headache diary -rx'ed abortive therapy -discussed preventative management with persistence -headache red flags discussed: report to ED immediately if headache characteristics intensify within 5 mins of onset, if associated with intense nausea and vomiting or confusion Relevant Medications SUMAtriptan (Imitrex) 25 MG tablet naproxen (Naprosyn) 500 MG tablet Encounter to establish care -personal medical, surgical, and medication histories reviewed along with family hx -routine health maintenance discussed -age appropriate screening and immunizations up to date. STI screening ordered today -low cardiovascular risk -mental health screening positive -healthy social behaviors encouraged -anticipatory guidance reviewed: Dietary Recommendations: Fruits, vegetables, whole grains, protein foods, and fat-free or low-fat dairy products are healthychoices. Eat different types of protein foods in your diet. This can include seafood, lean meats, poultry, beans, peas, lentils, nuts, seeds, soy products, and eggs. Limit foods and beverages higher in added sugars, saturated fat, and sodium. Exercise Recommendations: At least 150 minutes of moderate-intensity physical activity per week, or an equivalent combinationof moderate- and vigorous-intensity activity Varicose veins of both lower extremities with pain -saw [facility] [place] team 12/08/23. Noted to have spider veins vs venous insufficiency; venous doppler US was ordered which she has not completed -advised to follow-up with vascular to have US completed and further interventions Mixed anxiety and depressive disorder -Patient Health Questionnaire-9 Score: 12 (08/22/2024 11:04 AM) Patient Health Questionnaire-2 Score: 4 (08/22/2024 11:04 AM) Thoughts that you would be better off or hurting yourself in some way: Over half (08/22/2024 11:04 AM) -BETTY-7 Total Score: 17 (08/22/2024 11:05 AM) -expresses lack of desire for medication management. -discussed proper use of sertraline and offered as needed med for anxiety if she prefers -advised on the benefits of engaging in gentle yoga practices, meditation, deep breathing and journaling along with physical activity to aid in symptom improvement - consulted to assist with establishing with therapist. See consult note Breast tenderness in female -no in depth PE due to time constraint; there were no visible skin changes -suspect r/t hormone w/ depo injection -advised warm compress, supportive bra, caffeine avoidance if no migraine present -use NSAID -consider imaging at f/u pending full PE Other Visit Diagnoses Routine screening for STI (sexually transmitted infection) Relevant Orders Bacterial Vaginosis, Yeast and Trich Hepatitis C Antibody with Reflex to HCV, RNA, Quantitative, Real-Time PCR HIV-1/2 Antigen and Antibodies, Fourth Generation, with Reflexes Syphilis Screen Chlamydia/N. Gonorrhoeae RNA, TMA, Urine Encounter for immunization -plans to recieve COVID vax at f/u appt Relevant Orders Tdap vaccine greater than or equal to 7 years old IM (Completed) Hepatitis A vaccine adult IM (Completed) Dietary counseling Exercise counseling Bilateral low back pain without sciatica, unspecified chronicity -trial NSAID -back exercises provided -f/u 6 weeks Follow-up 6 weeks or sooner as needed documented in this encounter Miscellaneous Notes * Patient Education Note - Estella Kelly NP - 08/22/2024 3:38 PM EDT Images from the original note were not included. Patient Education Table of Contents Back Exercises To view videos and all your education online visit, [email or web address] or scan this QR code with your smartphone. Access to this content will in one year. Back Exercises The following exercises strengthen the muscles that help to support the trunk (torso) and back. They also help to keep the lower back flexible. Doing these exercises can help to prevent or lessen existing low back pain. If you have back pain or discomfort, try doing these exercises 2?3 times each day or as told by your health care provider. As your pain improves, do them once each day, but increase the number of times that you repeat the steps for each exercise (do more repetitions). To prevent the recurrence of back pain, continue to do these exercises once each day or as told by your health care provider. Do exercises exactly as told by your health care provider and adjust them as directed. It is normalto feel mild stretching, pulling, tightness, or discomfort as you do these exercises, but you should stop right away if you feel sudden pain or your pain gets worse. Exercises Single knee to chest Repeat these steps 3?5 times for each le. Lie on your back on a firm bed or the floor with your legs extended. Bring one knee to your chest. Your other leg should stay extended and in contact with the floor. Hold your knee in place by grabbing your knee or thigh with both hands and hold. Pull on your knee until you feel a gentle stretch in your lower back or buttocks. Hold the stretch for 10?30 seconds. Slowly release and straighten your leg. Pelvic tilt Repeat these steps 5?10 times: 1. Lie on your back on a firm bed or the floor with your legs extended. Bend your knees so they are pointing toward the ceiling and your feet are flat on the floor. Tighten your lower abdominal muscles to press your lower back against the floor. This motion will tilt your pelvis so your tailbone points up toward the ceiling instead of pointing to your feet or the floor. With gentle tension and even breathing, hold this position for 5?10 seconds. Cat-cow Repeat these steps until your lower back becomes more flexible: 1. Get into a [id number] position on a firm bed or the floor. Keep your hands under your shoulders, and keep your knees under your hips. You may place padding under your knees for comfort. Let your head hang down toward your chest. Contract your abdominal muscles and point your tailbone toward the floor so your lower back becomes rounded like the back of a cat. Hold this position for 5 seconds. Slowly lift your head, let your abdominal muscles relax, and point your tailbone up toward the ceiling so your back forms a sagging arch like the back of a cow. Hold this position for 5 seconds. Press-ups Repeat these steps 5?10 times: 1. Lie on your abdomen (face-down) on a firm bed or the floor. Place your palms near your head, about shoulder-width apart. Keeping your back as relaxed as possible and keeping your hips on the floor, slowly straighten yourarms to raise the top half of your body and lift your shoulders. Do not use your back muscles to raise your upper torso. You may adjust the placement of your hands to make yourself more comfortable. Hold this position for 5 seconds while you keep your back relaxed. Slowly return to lying flat on the floor. Bridges Repeat these steps 10 times: 1. Lie on your back on a firm bed or the floor. Bend your knees so they are pointing toward the ceiling and your feet are flat on the floor. Your arms should be flat at your sides, next to your body. Tighten your buttocks muscles and lift your buttocks off the floor until your waist is at almost the same height as your knees. You should feel the muscles working in your buttocks and the back of your thighs. If you do not feel these muscles, slide your feet 1?2 inches (2.5?5 cm) farther away fromyour buttocks. Hold this position for 3?5 seconds. Slowly lower your hips to the starting position, and allow your buttocks muscles to relax completely. If this exercise is too easy, try doing it with your arms crossed over your chest. Abdominal crunches Repeat these steps 5?10 times: 1. Lie on your back on a firm bed or the floor with your legs extended. Bend your knees so they are pointing toward the ceiling and your feet are flat on the floor. Cross your arms over your chest. Tip your chin slightly toward your chest without bending your neck. Tighten your abdominal muscles and slowly raise your torso high enough to lift your shoulder bladesa tiny bit off the floor. Avoid raising your torso higher than that because it can put too much stress on your lower back and does not help to strengthen your abdominal muscles. Slowly return to your starting position. Back lifts Repeat these steps 5?10 times: 1. Lie on your abdomen (face-down) with your arms at your sides, and rest your forehead on the floor. Tighten the muscles in your legs and your buttocks. Slowly lift your chest off the floor while you keep your hips pressed to the floor. Keep the back of your head in line with the curve in your back. Your eyes should be looking at the floor. Hold this position for 3?5 seconds. Slowly return to your starting position. Contact a health care provider if: Your back pain or discomfort gets much worse when you do an exercise. Your worsening back pain or discomfort does not lessen within 2 hours after you exercise. If you have any of these problems, stop doing these exercises right away. Do not do them again unless your health care provider says that you can. Get help right away if: You develop sudden, severe back pain. If this happens, stop doing the exercises right away. Do not do them again unless your health care provider says that you can. This information is not intended to replace advice given to you by your health care provider. Make sure you discuss any questions you have with your health care provider. Document Released: 2005-05-07 Document Updated: 2023-05-03 Document Reviewed: 2021-06-12 [employer] Patient Education ? 2024 [employer]. * Assessment & Plan Note - Estella Kelly NP - 08/22/2024 12:31 PM EDTAssociated Problem(s): Breast tenderness in female -no in depth PE due to time constraint; there were no visible skin changes -suspect r/t hormone w/ depo injection -advised warm compress, supportive bra, caffeine avoidance if no migraine present -use NSAID -consider imaging at f/u pending full PE * Assessment & Plan Note - Estella Kelly NP - 08/22/2024 12:27 PM EDTAssociated Problem(s): Mixed anxiety and depressive disorder -Patient Health Questionnaire-9 Score: 12 (08/22/2024 11:04 AM) Patient Health Questionnaire-2 Score: 4 (08/22/2024 11:04 AM) Thoughts that you would be better off or hurting yourself in some way: Over half (08/22/2024 11:04 AM) -BETTY-7 Total Score: 17 (08/22/2024 11:05 AM) -expresses lack of desire for medication management. -discussed proper use of sertraline and offered as needed med for anxiety if she prefers -advised on the benefits of engaging in gentle yoga practices, meditation, deep breathing and journaling along with physical activity to aid in symptom improvement - consulted to assist with establishing with therapist. See consult note * Assessment & Plan Note - Estella Kelly NP - 08/22/2024 12:25 PM EDTAssociated Problem(s): Varicose veins of both lower extremities with pain -saw [facility] [place] team 12/08/23. Noted to have spider veins vs venous insufficiency; venous doppler US was ordered which she has not completed -advised to follow-up with vascular to have US completed and further interventions * Assessment & Plan Note - Estella Kelly NP - 08/22/2024 12:22 PM EDTAssociated Problem(s): Encounter to establish care -personal medical, surgical, and medication histories reviewed along with family hx -routine health maintenance discussed -age appropriate screening and immunizations up to date. STI screening ordered today -low cardiovascular risk -mental health screening positive -healthy social behaviors encouraged -anticipatory guidance reviewed: Dietary Recommendations: Fruits, vegetables, whole grains, protein foods, and fat-free or low-fat dairy products are healthychoices. Eat different types of protein foods in your diet. This can include seafood, lean meats, poultry, beans, peas, lentils, nuts, seeds, soy products, and eggs. Limit foods and beverages higher in added sugars, saturated fat, and sodium. Exercise Recommendations: At least 150 minutes of moderate-intensity physical activity per week, or an equivalent combinationof moderate- and vigorous-intensity activity * Assessment & Plan Note - Estella Kelly NP - 08/22/2024 12:21 PM EDTAssociated Problem(s): Chronic nonintractable headache -advised headache diary -rx'ed abortive therapy -discussed preventative management with persistence -headache red flags discussed: report to ED immediately if headache characteristics intensify within 5 mins of onset, if associated with intense nausea and vomiting or confusion * Assessment & Plan Note - Estella Kelly NP - 08/22/2024 12:19 PM EDTAssociated Problem(s): Mild intermittent asthma without complication -albuterol inhaler rx'ed * Assessment & Plan Note - Estella Kelly NP - 08/22/2024 12:19 PM EDTAssociated Problem(s): Bacterial vaginosis -recurrent -currently on 12 week course of metronidazole topical -testing ordered as per patient request documented in this encounter Plan of Treatment Upcoming Encounters Date Type Department Care Team (Late st Contact Info) Description 10/07/2024 3:30 PM EDT Office Visit [facility] MEDICINE [address] [place] [phone] Estella Kelly NP [address] [place] [address] 10/28/2024 10:00 AM EDT Clinical Support [address] [address] Scheduled Orders Name Type Priority Associated Diagnoses Orde r Schedule Bacterial Vaginosis, Yeast and Trich Microbiology Routine Routine screening for STI (sexually transmitted infection) Bacterial vaginosis Expected: 08/22/2024 (Approximate), Expires: 08/22/2025 Hepatitis C Antibody with Reflex to HCV, RNA, Quantitative, Real-Time PCR Lab Routine Routine screening for STI (sexually transmitted infection) Expected: 08/22/2024 (Approximate), Expires: 08/22/2025 HIV-1/2 Antigen and Antibodies, Fourth Generation, with Reflexes Lab Routine Routine screening for STI (sexually transmitted infection) Expected: 08/22/2024 (Approximate), Expires: 08/22/2025 Syphilis Screen Lab Routine Routine screening for STI (sexually transmitted infection) Expected: 08/22/2024 (Approximate), Expires: 08/22/2025 Chlamydia/N. Gonorrhoeae RNA, TMA, Urine Microbiology Routine Routine screening for STI (sexually transmitted infection) Expected: 08/22/2024 (Approximate), Expires: 08/22/2025 documented as of this encounter Visit Diagnoses Diagnosis Chronic nonintractable headache, unspecified headache type- Primary Routine screening for STI (sexually transmitted infection) Screening examination for venereal disease Mild intermittent asthma without complication Encounter for immunization Bacterial vaginosis Unspecified vaginitis and vulvovaginitis Encounter to establish care Varicose veins of both lower extremities with pain Dietary counseling Dietary surveillance and counseling Exercise counseling Mixed anxiety and depressive disorder Dysthymic disorder Bilateral low back pain without sciatica, unspecified chronicity Breast tenderness in female documented in this encounter Additional Health Concerns Assessment Noted Time PHQ-9 Depression Total Score: 12 025 11:04 AM EDT documented as of this encounter Care Teams Admitting Clerk Relationship Specialty Start Date End Date Estella Kelly NP [address] [place] [address] PCP - General Family Medicine 12/15/23 documented as of this encounter
--- OUTSIDE RECORDS SUMMARY | 2024-08-22 12:47 | XMS_ITS | Encounter Summary ---
Author Organization [employer] Address [address] [facility] 7t [place] [address] Care Team Providers Care Refrigerating Machine Operator Name Role Phone Estella Kelly NP Primary Care Provider [phone] Reason for Visit * Reason Onset Date Comments Med Refill 06/27/2024 Encounter Details Date Type Department Care Team (Late st Contact Info) Description 06/27/2024 Refill [facility] MED[facility]INE [address] [place] [address] Estella Kelly NP [address] [place] [address] Social History Tobacco Use Types Packs/Day Years [...] Description 10/07/2024 3:30 PM EDT Office Visit [address] [address] Estella Kelly NP [address] [place] [address] 10/28/2024 10:00 AM EDT Clinical Support [address] [address] documented as of this encounter Visit Diagnoses Not on filedocumented in this encounter Additional Health Concerns Assessment Noted Time PHQ-9 Depression Total Score: 0 06/15/19 9:10 AM EST documented as of this encounter Care Teams Refrigerating Machine Operator Relationship Specialty Start Date End Date Estella Kelly NP [address] [place] [address] PCP - General Family Medicine 12/15/23 documented as of this encounter
--- OUTSIDE RECORDS SUMMARY | 2024-08-22 12:47 | XMS_ITS | Encounter Summary ---
Author Organization [employer] Address [address] [facility] 7t [place] [address] Care Team Providers Care Pier Hand Helper Name Role Phone Estella Kelly NP Primary Care Provider [phone] Reason for Visit * Reason Onset Date Comments Med Refill 05/15/2024 Encounter Details Date Type Department Care Team (Late st Contact Info) Description 05/15/2024 Refill [facility] MEDICINE [address] [place] [address] Danika Esquivel CNM [address] [place] [address] Social History Tobacco Use Types Packs/Day Years [...] Description 10/07/2024 3:30 PM EDT Office Visit [facility] MEDICINE [address] [place] [address] Estella Kelly NP [address] [place] [address] 10/28/2024 10:00 AM EDT Clinical Support [address] [address] documented as of this encounter Visit Diagnoses Not on filedocumented in this encounter Additional Health Concerns Assessment Noted Time PHQ-9 Depression Total Score: 0 06/15/19 24 9:10 AM EST documented as of this encounter Care Teams Pier Hand Helper Relationship Specialty Start Date End Date Estella Kelly NP [address] [place] [phone] PCP - General Family Medicine 12/15/23 documented as of this encounter
--- OUTSIDE RECORDS SUMMARY | 2024-08-22 12:47 | XMS_ITS | Encounter Summary ---
Author Organization [employer] Address [address] [facility] 7t [place] [address] Care Team Providers Care Battery Service Technician Name Role Phone Estella Kelly NP Primary Care Provider [phone] Reason for Visit * Reason Onset Date Comments Med Refill 07/29/2024 Encounter Details Date Type Department Care Team (Late st Contact Info) Description 07/29/2024 Refill [facility] MEDICINE [address] [place] [address] Estella Kelly NP [address] [place] [address] Social History Tobacco Use Types Packs/Day Years [...] Description 10/07/2024 3:30 PM EDT Office Visit [address] [address] Estella Kelly NP [address] [place] [address] 10/28/2024 10:00 AM EDT Clinical Support [address] [address] documented as of this encounter Visit Diagnoses Not on filedocumented in this encounter Additional Health Concerns Assessment Noted Time PHQ-9 Depression Total Score: 0 06/15/19 9:10 AM EST documented as of this encounter Care Teams Battery Service Technician Relationship Specialty Start Date End Date Estella Kelly NP [address] [place] [address] PCP - General Family Medicine 12/15/23 documented as of this encounter
--- OUTSIDE RECORDS SUMMARY | 2024-08-22 12:47 | XMS_ITS | Encounter Summary ---
Author Organization [employer] Address [address] [facility] 7t [place] [address] Care Team Providers Care County Ordinary Name Role Phone Nellie Logan Primary Care Provider [phone] Estella Kelly NP Primary Care Provider [phone] Encounter Details Date Type Department Care Team ([facility] st Contact Info) Description 12/13/2023 Orders Only [facility] MED & PEDS [address] [place] [address] Nellie Logan FNP [address] [place] [address] Social History Tobacco Use Types Packs/Day Years [...] Description 10/07/2024 3:30 PM EDT Office Visit [address] [address] Estella Kelly NP [address] [place] [address] 10/28/2024 10:00 AM EDT Clinical Support [address] [address] documented as of this encounter Visit Diagnoses Not on filedocumented in this encounter Additional Health Concerns Assessment Noted Time PHQ-9 Depression Total Score: 0 06/15/19 9:10 AM EST documented as of this encounter Care Teams County Ordinary Relationship Specialty Start Date End Date Nellie Logan FNP [address] [place] [address] PCP - General Family Medicine 01/13/23 12/14/23 Estella Kelly NP [address] [place] [address] PCP - General Family Medicine 12/15/23 documented as of this encounter
--- OUTSIDE RECORDS SUMMARY | 2024-08-22 12:47 | XMS_ITS | Encounter Summary ---
Author Organization [employer] Address [address] [facility] 7t [place] [address] Care Team Providers Care Nissan Sales Consultant Name Role Phone Estella Kelly NP Primary Care Provider [phone] Reason for Visit * Reason Onset Date Comments Med Refill 02/01/2024 Encounter Details Date Type Department Care Team (Late st Contact Info) Description 02/01/2024 Refill [facility] [place] [facility] MEDICINE [address] [place] [address] Estella Kelly NP [address] [place] [address] Social History Tobacco Use Types Packs/Day Years [...] Description 10/07/2024 3:30 PM EDT Office Visit [address] [address] Estella Kelly NP [address] [place] [address] 10/28/2024 10:00 AM EDT Clinical Support [address] [address] documented as of this encounter Visit Diagnoses Not on filedocumented in this encounter Additional Health Concerns Assessment Noted Time PHQ-9 Depression Total Score: 0 06/15/19 9:10 AM EST documented as of this encounter Care Teams Nissan Sales Consultant Relationship Specialty Start Date End Date Estella Kelly NP [address] [place] [address] PCP - General Family Medicine 12/15/23 documented as of this encounter
--- OUTSIDE RECORDS SUMMARY | 2024-08-22 12:47 | XMS_ITS | Encounter Summary ---
Author Organization [employer] Address [address] [facility] 7t [place] [address] Care Team Providers Care Lube Worker Name Role Phone Estella Kelly NP Primary Care Provider [phone] Reason for Visit * Reason Onset Date Comments Med Refill 01/29/2024 Encounter Details Date Type Department Care Team (Late st Contact Info) Description 01/29/2024 Refill [facility] MEDICINE [address] [place] [address] Estella Kelly NP [address] [place] [address] Social History Tobacco Use Types Packs/Day Years [...] Description 10/07/2024 3:30 PM EDT Office Visit [address] [address] Estella Kelly NP [address] [place] [address] 10/28/2024 10:00 AM EDT Clinical Support [address] [address] documented as of this encounter Visit Diagnoses Not on filedocumented in this encounter Additional Health Concerns Assessment Noted Time PHQ-9 Depression Total Score: 0 06/15/19 9:10 AM EST documented as of this encounter Care Teams Lube Worker Relationship Specialty Start Date End Date Estella Kelly NP [address] [place] [address] PCP - General Family Medicine 12/15/23 documented as of this encounter
--- OUTSIDE RECORDS SUMMARY | 2024-08-22 12:47 | XMS_ITS | Clinical Summary ---
Author Organization [employer] Address [address] [facility] [address] [place] [address] Care Team Providers Care Security Supervisor Name Role Phone Estella Kelly NP Primary Care Provider [phone] Allergies No known active allergies Medications * This document contains information received from the source organization and may not represent a complete record from that organization. medroxyPROGESTERo ne (Depo-Provera) 150 MG/ML injection Inject 1 mL (150 mg) into the muscle every 3 (three) months. 1 mL 3 024 Active sertraline (Zoloft) 25 MG tablet TAKE 2 TABLETS BY MOUTH EVERY DAY 60 tablet 1 024 Active medroxyPROGESTERo ne (Depo-Provera) 150 MG/ML injectionIndicati ons:Encounter for contraceptive management, unspecified type Inject 1 mL (150 mg) into the muscle every 3 (three) months. 1 mL 3 025 2025 Active traZODone (Desyrel) 100 MG tablet TAKE 1 TABLET BY MOUTH AT BEDTIME 30 tablet 1 025 Active ibuprofen 400 MG tablet TAKE 1 TABLET BY MOUTH EVERY 6 HOURS NEEDED FOR PAIN 30 tablet 025 Active SUMAtriptan (Imitrex) 25 MG tabletIndications :Chronic nonintractable headache, unspecified headache type Take 1 tablet (25 mg) by mouth 1 (one) time if needed for migraine for up to 18 doses. May repeat dose once in 2 hours if no relief. Do not exceed 2 doses in 24 hours. Lie down for at least 30 mins after taking Take with naproxen 9 tablet 1 025 Active naproxen (Naprosyn) 500 MG tabletIndications :Chronic nonintractable headache, unspecified headache type Take 1 tablet (500 mg) by mouth 2 times daily. Take with sumatriptan 60 tablet 1 025 2024 Active albuterol 108 (90 Base) MCG/ACT inhalerIndication s:Mild intermittent asthma without complication Inhale 2 puffs every 6 (six) hours if needed for wheezing. 18 g 11 025 2025 Active omega-3 (fish oil) 300 MG capsule 1 caps po once a day 020 2024 Discontinued(M ed list cleanup (will not trigger notification to Pharmacy)) D3 Super Strength 50 MCG (1999 UT) capsuleIndication s:Vitamin D deficiency TAKE 1 CAPSULE BY MOUTH EVERY DAY 90 capsule 1 023 2024 Discontinued(M ed list cleanup (will not trigger notification to Pharmacy)) hydrocortisone 2.5 % cream Apply pea sized amount to skin bid for 1 week 15 g 024 2024 Discontinued(M ed list cleanup (will not trigger notification to Pharmacy)) metroNIDAZOLE (Metrogel) 0.75 % vaginal gel One applicatorful twice a week for 12 weeks. Start week after oral medication 70 g 4 025 2024 Discontinued(M ed list cleanup (will not trigger notification to Pharmacy)) ibuprofen 400 MG tablet TAKE 1 TABLET BY MOUTH EVERY 6 HOURS NEEDED FOR PAIN 30 tablet 025 2024 Discontinued(R eorder (will not trigger notification to Pharmacy)) Hospital, Clinic, or Other Facility Administered Medication Ordered Dose Route Frequency Start Date End Date Status medroxyPROGESTERone (Depo-Provera) injection 150 mgIndications:Encounter for contraceptive management, unspecified type 150 mg IM Once 08/12/2024 08/12/2024 Ended Active Problems Problem Noted Date Diagnosed Date Mild intermittent asthma without complication Assessment & Plan (08/22/2024 12:19 PM EDT): -albuterol inhaler rx'ed Chronic nonintractable headache 08/22/2024 Assessment & Plan (08/22/2024 12:21 PM EDT): -advised headache diary -rx'ed abortive therapy -discussed preventative management with persistence -headache red flags discussed: report to ED immediately if headache characteristics intensify within 5 mins of onset, if associated with intense nausea and vomiting or confusion Encounter to establish care 08/22/2024 Assessment & Plan (08/22/2024 12:23 PM EDT): -personal medical, surgical, and medication histories reviewed along with family hx -routine health maintenance discussed -age appropriate screening and immunizations up to date. STI screening ordered today -low cardiovascular risk -mental health screening positive -healthy social behaviors encouraged -anticipatory guidance reviewed: Dietary Recommendations: Fruits, vegetables, whole grains, protein foods, and fat-free or low-fat dairy products are healthy choices. Eat different types of protein foods in your diet. This can include seafood, lean meats, poultry, beans, peas, lentils, nuts, seeds, soy products, and eggs. Limit foods and beverages higher in added sugars, saturated fat, and sodium. Exercise Recommendations: At least 150 minutes of moderate-intensity physical activity per week, or an equivalent combination of moderate- and vigorous-intensity activity Varicose veins of both lower extremities with pa in 08/22/2024 Assessment & Plan (08/22/2024 12:25 PM EDT): -saw [facility] vascular team 12/08/23. Noted to have spider veins vs venous insufficiency; venous doppler US was ordered which she has not completed -advised to follow-up with vascular to have US completed and further interventions Mixed anxiety and depressive disorder 08/22/2024 Assessment & Plan (08/22/2024 12:27 PM EDT): -Patient Health Questionnaire-9 Score: 12 (08/22/2024 11:04 [...] See consult note Breast tenderness in female 08/22/2024 Assessment & Plan (08/22/2024 12:31 PM EDT): -no in depth PE due to time constraint; there were no visible skin changes -suspect r/t hormone w/ depo injection -advised warm compress, supportive bra, caffeine avoidance if no migraine present -use NSAID -consider imaging at f/u pending full PE Bacterial vaginosis 11/18/2023 Assessment & Plan (08/22/2024 12:19 PM EDT): -recurrent -currently on 12 week course of metronidazole topical -testing ordered as per patient request Subacute vaginitis 11/02/2023 Assessment & Plan (11/02/2023 5:18 PM EDT): Suspect yeast, bv panel and gc/chl pending Rx as written below Pt opts for topical and oral given mild external irritation Alpha thalassemia 12/16/2022 Anemia 12/16/2022 Difficulty sleeping 12/16/2022 Vitamin D deficiency 12/16/2022 Encounters * This document contains information received from the source organization and may not represent a complete record from that organization. Date Type Department Care Team Description 08/22/2024 10:30 AM EDT Office Visit [facility] [address] [place] [id number] Estella Kelly NP Chronic nonintractable headache, unspecified headache type (Primary Dx); Routine screening for STI (sexually transmitted infection); Mild intermittent asthma without complication; Encounter for immunization; Bacterial vaginosis; Encounter to establish care; Varicose veins of both lower extremities with pain; Dietary counseling; Exercise counseling; Mixed anxiety and depressive disorder; Bilateral low back pain without sciatica, unspecified chronicity; Breast tenderness in female 08/22/2024 Travel 08/19/2024 Telephone [facility] [address] [place] [address] Wilfredo Canchola MA chartprep 08/15/2024 Patient Outreach [facility] [address] [place] [address] Estella Kelly NP Pre-visit Planning (SDOH will need to be completed in office. ) 08/12/2024 9:30 AM EDT Clinical Support [facility] [address] [place] [address] Gale Madison, RN Encounter for contraceptive management, unspecified type (Primary Dx) 08/12/2024 Orders Only [facility] [address] [place] [phone] Estella Kelly NP Encounter for contraceptive management, unspecified type (Primary Dx) 08/12/2024 Orders Only [facility] [address] [place] [id number] Estella Kelly NP Uses control (Primary Dx) 08/12/2024 Travel 07/29/2024 Refill [facility] [address] [place] [address] Estella Kelly NP 07/27/2024 Refill [facility] [address] [place] [address] Estella Kelly NP 06/28/2024 10:30 AM EDT Clinical Support [address] [address] Gale Madison RN Encounter for contraceptive management, unspecified type (Primary Dx) 06/27/2024 Refill [facility] [address] [place] [address] Estella Kelly NP 06/24/2024 Population Health Risk Score [facility] [address] [place] [phone] Provider, Population Health Generic 06/24/2024 Refill [facility] [address] [place] [address] Estella Kelly NP 06/12/2024 Refill [facility] [address] [place] [address] Estella Kelly NP 06/07/2024 Telephone [facility] [address] [place] [address] Wilfredo Canchola MA June recall 06/01/2024 11:15 AM EST Office Visit [facility] [address] [place] [address] LeonNorberton, OD Myopia of both eyes (Primary Dx) 05/27/2024 11:30 AM EST Clinical Support [facility] [address] [place] [address] Giana Shannon, RN Encounter for contraceptive management, unspecified type (Primary Dx) 05/27/2024 Travel from Last 3 Months Immunizations Name Administration Dates Next Due DTaP 02/23/2006, 6,05/31/2003,08/31,2002,2002 HPV 9-Valent 12/05/2014 HPV, Quadrivalent 06/27/2014,04/26/2014 Hep A, Adult 08/22/2024 Hep A, ped/adol, 2 dose 03/16/2023,04/26/2014 Hep A, ped/adol, 3 dose 06/04/2012 Hep B, Adolescent or Pediatric 3,2002,2002,06/22,2002 Hib (HbOC) 05/31/2003,2002,2002 IPV 02/23/2006, 3,2002,04/22 Influenza injectable quadriv alent preservative free 03/16/2023,03/16/2020,01/21/2019,01/08,04/26/2014 Influenza, IIV3, injectable 05/10/2010, 0,02/23/2006 MMR 02/23/2006,03/14/2003 MMRV 02/23/2006 Meningococcal MCV4P ACYW-135 01/21/2019,04/26/19 15 Moderna Covid-19 Vaccine 6+ Bivalent 07/18/2022 Novel qooggyrea-V4N4-75, preservative-free 04/20/2009,02/24/2009 Pneumococcal Conjugate PCV 7 2002,09/01/19 03,2002 Tdap 08/22/2024,04/26/2014 Varicella 02/23/2006,03/14/2003,2002 Family History Medical History Relation Name Comments Depression Father Arthritis Maternal Grandmother Asthma Maternal Grandmother Depression Maternal Grandmother Lupus Maternal Grandmother Arthritis Mother Asthma Mother Depression Mother Arthritis Mother's Sister Asthma Mother's Sister Relation Name Status Comments Father Maternal Grandmother Mother Mother's Sister Social History Tobacco Use Types Packs/Day Years Used Date Smoking Tobacco: Never Passive Smoke Exposure: Never Smokeless Tobacco: Never Tobacco Cessation:Counseling Given: Not Answered Alcohol Use Standard Drinks/Week Comments Yes 0 [...] not to disclose 2021 10:18 AM EDT Last Filed Vital Signs Vital Sign Reading [...] Mass Index 29.23 08/22/2024 10:39 AM EDT Plan of Treatment Upcoming Encounters Date Type Department Care Team (Late st Contact Info) Description 10/07/2024 3:30 PM EDT Office Visit [facility] [address] [place] [phone] Estella Kelly NP [address] [place] [address] 10/28/2024 10:00 AM EDT Clinical Support [facility] [address] [place] [phone] Health Maintenance Due Date Last Done Comments Pneumococcal Vaccine: Pediatrics (0 to 5 Years) and At-Risk Patients (6 to 49) Years) (1 of 2 - PCV) 2021 2002, 2002, 2002 COVID-19 Vaccine ( season) 2023 07/18/2022, 05/29/2021, 09/01/2020, Additional history exists Influenza Vaccine (#1) 2023 , 03/16/2020, 01/21/2019, Additional history exists Chlamydia and Gonorrhea Screening 12/29/2024 12/30/2023, 11/02/2023, 09/25/2023, Additional history exists Family Planning (PISQ) 05/27/2025 05/27/2024 Alcohol/Substance Use Screening 08/22/2025 08/22/2024 Depression Screening 08/22/2025 08/22/2024, 08/23/19 SDOH Screening 08/22/2025 08/22/2024 Tobacco Screening 08/22/2025 08/22/2024 Pap Smear 05/04/2026 05/04/2023, 05/04/2023 DTaP/Tdap/Td Vaccines (8 - Td or Tdap) 08/22/2034 08/22/2024, 04/26/2014, 02/23/2006, Additional history exists Zoster Vaccines (1 of 2) 02/16/2052 RSV Patients and Patients Aged 60 years or older (1 - 1-dose 75+ series) 2077 Hepatitis B Vaccines Completed 2002, 2002, 2002, Additional history exists HIB Vaccines Completed 05/31/2003, 06/11, 2002 IPV Vaccines Completed 02/23/2006, 08/12, 2002, Additional history exists HPV Vaccines Completed 12/05/2014, 06/11, 04/26/2014 Meningococcal Vaccine Completed 01/21/2019, 015 HIV Screening Completed 01/04/2024, 08/2022, 11/23/2020 Hepatitis C Screening Completed 01/04/2024 , 12/16/2022, 11/23/2020 Hepatitis A Vaccines Completed 08/22/2024, 03/16/2023, 04/26/2014 RSV under 20 months Aged Out No longe r eligible based on patient's age to complete this topic Rotavirus Vaccines Aged Out No longer eligible based on patient's age to complete this topic Procedures Procedure Name Priority Date/Time Associated Diagnosis Comments POCT , URINE Routine 08/12/2024 10:21 AM EDT Encounter for contraceptive management, unspecified type POCT , URINE Routine 06/28/2024 11:08 AM EDT Encounter for contraceptive management, unspecified type POCT , URINE Routine 05/27/2024 11:58 AM EST Encounter for contraceptive management, unspecified type HEPATITIS C VIRAL RNA, QUANTITATIVE, REAL-TIME PCR Routine 01/04/2024 11:15 AM EDT Acute vaginitis HIV 1/2 ANTIGEN/ANTIBODY, FOURTH GENERATION W/RFL Routine 01/04/2024 11:15 AM EDT Acute vaginitis CHLAMYDIA/N. GONORRHOEAE RNA, TMA, UROGENITAL Routine 12/30/2023 11:00 AM EDT Acute vaginitis IMAGE-GUIDED PAP W/AGE BASED SCR,W/CT/NG/TRICH Routine 05/04/2023 2:09 PM EST Routine cervical smear Screening examination for venereal disease from Last 3 Months or Most Recently Relevant to Health Maintenance Results * POCT , urine manually resulted (08/12/2024 10:21 AM EDT) Only the most recent of3 resultswithin the time period is included. Preg Test, Ur Negative Negative, Indeterminate, None Detected, Invalid, Specimen unsatisfactory for evaluation, Weakly Positive, 2+ QC Media Lot # [id number] Lot# Expiration Date [id number] Urine 08/12/2024 10:2 1 AM EDT us Estella Kelly NP POINT OF CARE TEST ENTER/EDIT O RDERABLES Final Result * Hepatitis C Viral RNA, Quantitative, Real-Time PCR (01/04/2024 11:15 AM EDT) Hepatitis C Viral Load <15 NOT DETECTED NOT DETECTED IU/mL [facility] HCV Log PCR <1.18 NOT DETECTED NOT DETECTED Log IU/mL [facility] Comment:For additional infor alvin, please refer tohttp://education.[employer]ardpod/faq/BSD79s3(This link is being provided for informational/educational purposes only.)THIS TEST WAS PERFORMED AT:[facility] [place] [phone] TORRES MD Blood 01/04/2024 11:1 5 AM EDT 01/04/2024 1:33 PM EDT Zakia Bautista [facility] BLOOD ORDERABLES Final Res ult [facility] [address] [place] [address] [phone] * HIV-1/2 Antigen and Antibodies, Fourth Generation, with Reflexes (01/04/2024 11:15 AM EDT) [facility] HIV AB/AG Nonreactive Nonreactive [facility] Comment:HIV-1 p24 Ag and/or HIV-1/HIV-2 Ab not detected.A test result that is nonreactive does not exclude thepossibility of exposure to or infection with HIV-1 and/orHIV-2. Nonreactive results in this assay for individualswith prior exposure to HIV-1 and/or HIV-2 may be due toantigen and antibody levels that are below the limit ofdetection of this assay.The [employer] HIV Ag/Ab Combo assay result andsupplemental assay results should be interpreted inconjunction with the patient's clinical presentation,history and other laboratory results. If the results areinconsistent with clinical evidence, additional testing issuggested to confirm the result. Blood Venous blood specimen / Unknown 01/04/2024 11:15 AM EDT 01/04/2024 1:33 PM EDT Zakia MCMILLANP LAB BLOOD ORDERABLES Final Res ult [facility] [address] [place] [address] [phone] * Chlamydia/N. Gonorrhoeae RNA, TMA, Urogenitial (12/30/2023 11:00 AM EDT) CT PCR NOT DETECTED Not Detect. [facility] Comment:A not detected test result does not exclude the possibilityof infection because test results can be affected byimproper specimen collection, concurrent antibiotic therapy,or the number of organisms in the specimen which may bebelow the sensitivity of the test. As with many diagnostictests, results from the Xpert CT/NG assay should beinterpreted in conjunction with other laboratory andclinical data available to the clinician.Xpert CT/NG performance has not been evaluated in patientsless than 14 years of age. The assay should not be used forthe evaluationof suspected sexual abuse or for other medico-legalindications. Additional testing is recommended in anycircumstance when false positive or false negative resultscould lead to adverse medical, social or psychologicalconsequences. NG PCR NOT DETECTED Not Detect. [facility] Comment:A not detected test result does not exclude the possibilityof infection because test results can be affected byimproper specimen collection, concurrent antibiotic therapy,or the number of organisms in the specimen which may bebelow the sensitivity of the test. As with many diagnostictests, results from the Xpert CT/NG assay should beinterpreted in conjunction with other laboratory andclinical data available to the clinician.Xpert CT/NG performance has not been evaluated in patientsless than 14 years of age. The assay should not be used forthe evaluationof suspected sexual abuse or for other medico-legalindications. Additional testing is recommended in anycircumstance when false positive or false negative resultscould lead to adverse medical, social or psychologicalconsequences. Swab (Vaginal Swab) 12/30/2023 11:00 AM EDT 12/30/2023 5:53 PM EDT Narrative [facility] - 12/31/2023 4:03 AM EDT Vaginal Zakia Bautista [facility] MICROBIOLOGY - GENERAL ORD ERABLES Final Result Performing Organization Address [facility] Co de Phone Number [facility] [address] [place] [address] [phone] * Image-Guided Pap with Age-Based Screening??with CT/NG,??Trichomonas (05/04/2023 2:09 PM EST) Trichomonas (NAAT) NOT DETECTED NOT DETECTED [facility] Comment:The analytical perfo rmance characteristics of thisassay have been determined by [employer]. Themodifications have not been cleared or approved bythe FDA. This assay has been validated pursuant to theCLIA regulations and is used for clinical purposes.For additional information, please refer tohttp://education.Rewardpod/faq/Trichomonastma(This link is being provided for information/educational purposes only.)THIS TEST WAS PERFORMED AT:[facility] [place] [phone] TORRES MD CTNG Ref Lab NOT DETECTED NOT DETECTED [facility] NG Ref Lab NOT DETECTED NOT DETECTED [facility] Pap Vial 05/04/2023 2:09 PM EST 05/06/2023 11:32 AM EST Danika Esquivel CNM LAB CYTOLOGY ORDERABLES F inal Result Performing Organization Address [facility] Co de Phone Number [facility] [address] [place] [address] [phone] from Last 3 Months or Most Recently Relevant to Health Maintenance [facility] * Guarantor: Yuki Mcgill Account Type Relation to Patient Date of Phone Billing Address Personal/Family Self [address] Care Teams Security Supervisor Relationship Specialty Start Date End Date Estella Kelly NP [address] [place] [phone] PCP - General Family Medicine 12/15/23
--- OUTSIDE RECORDS SUMMARY | 2024-08-22 12:47 | XMS_ITS | Encounter Summary ---
Author Organization [employer] Address [address] [facility] [address] [place] [address] Care Team Providers Care Customer Advocate Name Role Phone Estella Kelly NP Primary Care Provider [phone] Reason for Visit * Reason Onset Date Comments Med Refill 03/07/2024 Encounter Details Date Type Department Care Team (Late st Contact Info) Description 03/07/2024 Refill [facility] [address] [place] [address] Name, MD Mark [address] [place] [address] Social History Tobacco Use Types Packs/Day Years [...] Description 10/07/2024 3:30 PM EDT Office Visit [address] [address] Estella Kelly NP [address] [place] [address] 10/28/2024 10:00 AM EDT Clinical Support [address] [address] documented as of this encounter Visit Diagnoses Not on filedocumented in this encounter Additional Health Concerns Assessment Noted Time PHQ-9 Depression Total Score: 0 06/15/19 9:10 AM EST documented as of this encounter Care Teams Customer Advocate Relationship Specialty Start Date End Date Estella Kelly NP [address] [place] [phone] PCP - General Family Medicine 12/15/23 documented as of this encounter
--- OUTSIDE RECORDS SUMMARY | 2024-08-22 12:47 | XMS_ITS | Encounter Summary ---
Author Organization [employer] Address [address] [facility] [address] [place] [address] Care Team Providers Care Schedule Manager Name Role Phone Estella Kelly NP Primary Care Provider [phone] Encounter Details Date Type Department Care Team (Latest Contact Info) Description 08/22/2024 Travel Social History Tobacco Use Types Packs/Day Years [...] is your housing situation today? I have valeriaalejandro shukla 08/22/[address] you [...] Description 10/07/2024 3:30 PM EDT Office Visit [facility] [address] [place] [phone] Estella Kelly NP [address] [place] [address] 10/28/2024 10:00 AM EDT Clinical Support [address] [address] documented as of this encounter Visit Diagnoses Not on filedocumented in this encounter Additional Health Concerns Assessment Noted Time PHQ-9 Depression Total Score: 12 025 11:04 AM EDT documented as of this encounter Care Teams Schedule Manager Relationship Specialty Start Date End Date Estella Kelly NP [address] [place] [address] PCP - General Family Medicine 12/15/23 documented as of this encounter
[2024-08-22 16:23] LABS: CT PCR NOT DETECTED (Not Detect.); NG PCR NOT DETECTED (Not Detect.)
[2024-08-23 07:28] LABS: Syphilis Screen Nonreactive (Nonreactive)
[2024-08-23 07:31] LABS: HIV AB/AG Nonreactive (Nonreactive); HIV Num 1 0.06 S/CO (0.00-0.99); ~HepC Num1 0.22 S/CO (0.00-0.79); ~Hepatitis C Antibody Nonreactive (Nonreactive)
== END 2024-08-22 12:20 | disposition home or self-care (01) ==
LOC: HO.HHCL 12:19
PROVIDERS: Visit Provider Nurse Practitioner
DX: Z11.3 Encounter for screening for infections with a predominantly sexual mode of transmission (principal)
CPT/HCPCS: 86780; 86803; 87389; 87491; 87591

== ENCOUNTER 2024-10-07 17:40 | Outpatient (REF) | payer MEDICAID, SELFPAY ==
[2024-10-08 09:08] LABS: Bacterial Vaginosis PCR POSITIVE (Negative); Candida Group PCR NOT DETECTED (Not Detect); Candida glab krusei PCR NOT DETECTED (Not Detect); Trichomonas vaginalis PCR NOT DETECTED (Not Detect)
== END 2024-10-07 17:41 | disposition home or self-care (01) ==
LOC: HO.HHCLNP 17:40
PROVIDERS: Visit Provider Nurse Practitioner
DX: Z11.3 Encounter for screening for infections with a predominantly sexual mode of transmission (principal); N76.0 Acute vaginitis; B96.89 Other specified bacterial agents as the cause of diseases classified elsewhere
CPT/HCPCS: 81515

== ENCOUNTER 2025-03-01 18:29 | Outpatient (REF) | payer MEDICAID, SELFPAY ==
--- OUTSIDE RECORDS SUMMARY | 2025-03-01 14:30 | XMS_ITS | Encounter Summary ---
Author Organization [employer] Address [address] [facility] 7t [place] [address] Care Team Providers Care Client Advocate Name Role Phone Estella Kelly NP Primary Care Provider [phone] Reason for Visit * Reason Comments sick visit Encounter Details Date Type Department Care Team ([facility] st Contact Info) Description 03/01/2025 2:30 PM EST Office Visit [facility] [address] [place] [address] Della Hoskins FNP [address] [place] [address] Vaginal discharge (Primary Dx) Social History Tobacco Use Types [...] Sign Reading Time Taken Comments Blood Pressure 128/64 03/01/2025 2:30 PM EST Pulse 110 03/01/2025 2:30 PM EST Temperature 37.1 C (98.7 F) 03/01/2025 2:30 PM EST Respiratory Rate 21 03/01/2025 2:30 PM EST Oxygen Saturation 94% 03/01/2025 2:30 PM EST Inhaled Oxygen Concentration - - Weight 78 kg (172 lb) 03/01/2025 2:30 PM EST Height 157.5 cm (5' 2 ) 03/01/2025 2:30 PM EST Body Mass Index 31.46 03/01/2025 2:30 PM EST documented in this encounter Plan of Treatment Scheduled Orders Name Type Priority Associated Diagnoses Orde r Schedule Culture, Urine, Routine Microbiology Routine Vaginal discharge Expected: 03/01/2025 (Approximate), Expires: 03/01/2026 documented as of this encounter Procedures Procedure Name Priority Date/Time Associated Diagnosis Comments POCT URINALYSIS DIPSTICK Routine 03/01/2025 2:47 PM EST Vaginal discharge BACTERIAL VAGINOSIS PANEL Routine 03/01/2025 2:30 PM EST Vaginal discharge CHLAMYDIA/N. GONORRHOEAE RNA, TMA, UROGENITAL Routine 03/01/2025 2:30 PM EST Vaginal discharge documented in this encounter Results * (ABNORMAL) POCT Urinalysis (03/01/2025 2:47 PM EST) Color, UA Yellow Clarity, UA Clear Glucose, UA Negative Bilirubin, UA Negative Ketones, UA Negative Spec Grav, UA 1.030 Blood, UA Positive(A) Negative, None Detected Comment:trace-intact pH, UA 6.0 Protein, UA Negative Urobilinogen, UA 0.2 Leukocytes, UA Trace Negative, Rare, Trace Nitrite, UA Negative Negative, None Detected QC Media Lot # [id number] Lot# Expiration Date 63 Urine (Urine, Random) 03/01/2025 2:47 PM EST Result [facility] POINT OF CARE TEST ENTER/EDIT ORDERABLES Final Result * (ABNORMAL) Bacterial Vaginosis Panel (03/01/2025 2:30 PM EST) TRICHOMONAS VAGINALIS DETECTION BY PCR DETECTED(A) Not Detect [facility] BACTERIAL VAGINOSIS DETECTION BY PCR NEGATIVE Negative [facility] Comment:The BV organism targ ets of the Xpert Xpress MVP test can becommensal in women; Xpert Xpress MVP positive results forbacterial vaginosis should be considered in conjunction withother clinical and patient information to determine thedisease status. Organisms that are not detected by the XpertXpress MVP test have also been reported to be associatedwith BV and aerobic vaginitis.The Xpert Xpress MVP test performance has not been evaluatedin patients under the age of 14. BRANDI GROUP DETECTION BY PCR DETECTED(A) Not Detect [facility] Brandi glab krusei PCR NOT DETECTED Not Detect [facility] Swab Vaginal structure / Unknown 03/01/2025 2:30 PM EST 03/01/2025 6:31 PM EST Della Hoskins [facility] MICROBIOLOGY - GENERAL ORD ERABLES Final Result [facility] [address] [place] [address] [phone] * Chlamydia/N. Gonorrhoeae RNA, TMA, Vaginal (03/01/2025 2:30 PM EST) CT PCR NOT DETECTED Not Detect. [facility] Comment:A not detected test result [...] psychologicalconsequences. NG PCR NOT DETECTED Not Detect. [facility] Comment:A not detected test result [...] medical, social or psychologicalconsequences. Swab (Vaginal Swab) 03/01/2025 2:30 PM EST 03/01/2025 6:31 PM EST Dellasukumar Hoskins OIL FIELD OPERATOR LAB MICROBIOLOGY - GENERAL ORD ERABLES Final Result [facility] [address] [place] [address] [phone] documented in this encounter Visit Diagnoses Diagnosis Vaginal discharge- Primary Leukorrhea, not specified as infective documented in this encounter Additional Health Concerns Assessment Noted Time PHQ-9 Depression Total Score: 12 025 11:04 AM EDT documented as of this encounter Care Teams Client Advocate Relationship Specialty Start Date End Date Estella Kelly NP [address] [place] [address] PCP - General Family Medicine 12/15/23 documented as of this encounter
[2025-03-02 02:51] LABS: Bacterial Vaginosis PCR NEGATIVE (Negative); Candida Group PCR DETECTED (Not Detect); Candida glab krusei PCR NOT DETECTED (Not Detect); Trichomonas vaginalis PCR DETECTED (Not Detect)
[2025-03-02 03:23] LABS: CT PCR NOT DETECTED (Not Detect.); NG PCR NOT DETECTED (Not Detect.)
--- OUTSIDE RECORDS SUMMARY | 2025-03-02 05:11 | XMS_ITS | Encounter Summary ---
Author Organization [employer] Address [address] [facility] 7t [place] [address] Care Team Providers Care Historic Clothing And Costume Maker Name Role Phone Estella Kelly NP Primary Care Provider [phone] Reason for Visit * Reason Onset Date Comments Nurse Triage 03/01/2025 Encounter Details Date Type Department Care Team ([facility] st Contact Info) Description 03/01/2025 Telephone [facility] [address] [place] [address] Estella Kelly NP [address] [place] [address] Nurse Triage Social History Tobacco Use Types Packs/Day Years [...] encounter Miscellaneous Notes * Telephone Encounter - Adele Rousseau RN - 03/01/2025 11:00 AM EST TC placed to pt who calls to report green vaginal discharge that started yesterday she denies any new sexual partners however she does have unprotected sex with current partner. She denies any vaginal pain, rash, or odor at this time. Pt scheduled at 2:30 on blue team today Protocol Used: Vaginal Discharge (Adult) Protocol-Based Disposition: See in Office or Video Visit Today Positive Triage Questions: * Patient wants to be seen * Abnormal color vaginal discharge (i.e., yellow, green, mendoza) * All higher-acuity triage questions were negative. * Telephone Encounter - Mark Dobson - 03/01/2025 10:49 AM EST Symptom: Vaginal Symptoms - Not Bleeding Outcome: Schedule an urgent appointment (within 1 hour) or talk to a nurse or provider soon Reason: Any pelvic pain pt is experiencing green discharge and discomfort. The caller accepted this outcome. Contact pt at [phone] documented in this encounter Plan of Treatment Not on file documented as of this encounter Visit Diagnoses Not on filedocumented in this encounter Additional Health Concerns Assessment Noted Time PHQ-9 Depression Total Score: 12 025 11:04 AM EDT documented as of this encounter Care Teams Historic Clothing And Costume Maker Relationship Specialty Start Date End Date Estella Kelly NP [address] [place] [address] PCP - General Family Medicine 12/15/23 documented as of this encounter
--- OUTSIDE RECORDS SUMMARY | 2025-03-02 05:11 | XMS_ITS | Encounter Summary ---
Author Organization [employer] Address [address] [facility] 7t [place] [address] Care Team Providers Care Desk Maker Name Role Phone Estella Kelly NP Primary Care Provider [phone] Reason for Visit * Reason Onset Date Comments Med Refill 01/12/2025 Encounter Details Date Type Department Care Team (Late st Contact Info) Description 01/12/2025 Refill [facility] [address] [place] [address] Estella Kelly NP [address] [place] [address] Abnormal uterine bleeding Social History Tobacco Use Types Packs/Day Years [...] as of this encounter Plan of Treatment Not on file documented as of this encounter Visit Diagnoses Diagnosis Abnormal uterine bleeding Unspecified disorder of menstruation and other abnormal bleeding from female genital tract documented in this encounter Additional Health Concerns Assessment Noted Time PHQ-9 Depression Total Score: 12 025 11:04 AM EDT documented as of this encounter Care Teams Desk Maker Relationship Specialty Start Date End Date Estella Kelly NP [address] [place] [address] PCP - General Family Medicine 12/15/23 documented as of this encounter
--- OUTSIDE RECORDS SUMMARY | 2025-03-02 05:11 | XMS_ITS | Encounter Summary ---
Author Organization [employer] Address [address] [facility] 7t [place] [address] Care Team Providers Care Crocodile Farmer Name Role Phone Nellie Logan Primary Care Provider [phone] Estella Kelly NP Primary Care Provider [phone] Encounter Details Date Type Department Care Team (Late st Contact Info) Description 09/28/2023 Orders Only [facility] [address] [place] [address] Nellie Logan FNP [address] [place] [address] Social History Tobacco Use Types Packs/Day Years [...] housing situation today? I have valeriaalejandro shukla 01/30/[address] [...] documented as of this encounter Care Teams Crocodile Farmer Relationship Specialty Start Date End Date Nellie Logan FNP [address] [place] [address] PCP - General Family Medicine 01/13/23 12/14/23 Estella Kelly NP [address] [place] [address] PCP - General Family Medicine 12/15/23 documented as of this encounter
--- OUTSIDE RECORDS SUMMARY | 2025-03-02 05:11 | XMS_ITS | Encounter Summary ---
Author Organization [employer] Address [address] [facility] 7t [place] [address] Care Team Providers Care Sales Account Coordinator Name Role Phone Estella Kelly NP Primary Care Provider [phone] Reason for Visit * Reason Onset Date Comments Med Refill 06/27/2024 Encounter Details Date Type Department Care Team (Late st Contact Info) Description 06/27/2024 Refill [facility] [address] [place] [address] Estella Kelly NP [address] [place] [address] Social History Tobacco Use Types Packs/Day Years [...] documented as of this encounter Care Teams Sales Account Coordinator Relationship Specialty Start Date End Date Estella Kelly NP [address] [place] [address] PCP - General Family Medicine 12/15/23 documented as of this encounter
--- OUTSIDE RECORDS SUMMARY | 2025-03-02 05:11 | XMS_ITS | Encounter Summary ---
Author Organization [employer] Address [address] [facility] 7t [place] [address] Care Team Providers Care Cannon Pinion Adjuster Name Role Phone Estella Kelly NP Primary Care Provider [phone] Reason for Visit * Reason Onset Date Comments Med Refill 05/15/2024 Encounter Details Date Type Department Care Team (Late st Contact Info) Description 05/15/2024 Refill [facility] [address] [place] [address] Danika Esquivel CNM [address] [place] [address] Social History Tobacco Use Types Packs/Day Years [...] documented as of this encounter Care Teams Cannon Pinion Adjuster Relationship Specialty Start Date End Date Estella Kelly NP [address] [place] [address] PCP - General Family Medicine 12/15/23 documented as of this encounter
--- OUTSIDE RECORDS SUMMARY | 2025-03-02 05:11 | XMS_ITS | Encounter Summary ---
Author Organization [employer] Address [address] [facility] 7t [place] [address] Care Team Providers Care Graphic Editor Name Role Phone Estella Kelly NP Primary Care Provider [phone] Reason for Visit * Reason Onset Date Comments Med Refill 01/16/2025 Encounter Details Date Type Department Care Team (Late st Contact Info) Description 01/16/2025 Refill [facility] [address] [place] [address] Estella Kelly NP [address] [place] [address] Abnormal uterine bleeding Social History Tobacco Use [...] documented as of this encounter Care Teams Graphic Editor Relationship Specialty Start Date End Date Estella Kelly NP [address] [place] [address] PCP - General Family Medicine 12/15/23 documented as of this encounter
--- OUTSIDE RECORDS SUMMARY | 2025-03-02 05:11 | XMS_ITS | Encounter Summary ---
Author Organization [employer] Address [address] [facility] [address] 7[address] [place] [address] Care Team Providers Care Research Manager Name Role Phone Estella Kelly NP Primary Care Provider [phone] Encounter Details Date Type Department Care Team (Latest Contact Info) Description 03/01/2025 Travel Social History Tobacco Use Types Packs/Day [...] your housing situation today? I have valeria sing 08/22/[address] you li [...] documented as of this encounter Care Teams Research Manager Relationship Specialty Start Date End Date Estella Kelly NP [address] [place] [address] PCP - General Family Medicine 12/15/23 documented as of this encounter
--- OUTSIDE RECORDS SUMMARY | 2025-03-02 05:11 | XMS_ITS | Encounter Summary ---
Author Organization [employer] Address [address] [facility] [address] [place] [address] Care Team Providers Care Numerical Tool Programmer Name Role Phone Estella Kelly NP Primary Care Provider [phone] Encounter Details Date Type Department Care Team ([facility] st Contact Info) Description 08/12/2024 Orders Only [facility] [address] [place] [address] Estella Kelly NP [address] [place] [address] Encounter for contraceptive management, unspecified type (Primary [...] documented as of this encounter Care Teams Numerical Tool Programmer Relationship Specialty Start Date End Date Estella Kelly NP [address] [place] [address] PCP - General Family Medicine 12/15/23 documented as of this encounter
--- OUTSIDE RECORDS SUMMARY | 2025-03-02 05:11 | XMS_ITS | Encounter Summary ---
Author Organization [employer] Address [address] [facility] [address] [place] [address] Care Team Providers Care Zipper Sewing Machine Operator Name Role Phone Estella Kelly NP Primary Care Provider [phone] Reason for Visit * Reason Onset Date Comments Med Refill 05/15/2024 Encounter Details Date Type Department Care Team (Late st Contact Info) Description 05/15/2024 Refill [facility] [address] [place] [address] Estella Kelly NP [address] [place] [address] Social History Tobacco Use Types Packs/Day Years [...] documented as of this encounter Care Teams Zipper Sewing Machine Operator Relationship Specialty Start Date End Date Estella Kelly NP [address] [place] [address] PCP - General Family Medicine 12/15/23 documented as of this encounter
--- OUTSIDE RECORDS SUMMARY | 2025-03-02 05:11 | XMS_ITS | Encounter Summary ---
Author Organization [employer] Address [address] [facility] 7t [place] [address] Care Team Providers Care Senior Financial Consultant Name Role Phone Estella Kelly NP Primary Care Provider [phone] Reason for Visit * Reason Onset Date Comments Med Refill 07/29/2024 Encounter Details Date Type Department Care Team (Late st Contact Info) Description 07/29/2024 Refill [facility] [address] [place] [address] Estella Kelly NP [address] [place] [address] Social History Tobacco Use Types Packs/Day Years [...] documented as of this encounter Care Teams Senior Financial Consultant Relationship Specialty Start Date End Date Estella Kelly NP [address] [place] [address] PCP - General Family Medicine 12/15/23 documented as of this encounter
--- OUTSIDE RECORDS SUMMARY | 2025-03-02 05:11 | XMS_ITS | Encounter Summary ---
Author Organization [employer] Address [address] [facility] [address] [place] [address] Care Team Providers Care Hemodialysis Charge Nurse Name Role Phone Estella Kelly NP Primary Care Provider [phone] Reason for Visit * Reason Comments Med Refill Encounter Details Date Type Department Care Team ([facility] Contact Info) Description 10/06/2024 Refill [facility] [address] [place] [address] Estella Kelly NP [address] [place] [address] Social History Tobacco Use Types Packs/Day Years [...] documented as of this encounter Care Teams Hemodialysis Charge Nurse Relationship Specialty Start Date End Date Estella Kelly NP [address] [place] [address] PCP - General Family Medicine 12/15/23 documented as of this encounter
--- OUTSIDE RECORDS SUMMARY | 2025-03-02 05:11 | XMS_ITS | Encounter Summary ---
Author Organization [employer] Address [address] [facility] 7t [place] [address] Care Team Providers Care Employee Benefits Insurance Agent Name Role Phone Estella Kelly NP Primary Care Provider [phone] Reason for Visit * Reason Onset Date Comments Med Refill 11/07/2024 Encounter Details Date Type Department Care Team (Late st Contact Info) Description 11/07/2024 Refill [facility] [address] [place] [address] Estella Kelly NP [address] [place] [address] Social History Tobacco Use Types Packs/Day Years [...] documented as of this encounter Care Teams Employee Benefits Insurance Agent Relationship Specialty Start Date End Date Estella Kelly NP [address] [place] [address] PCP - General Family Medicine 12/15/23 documented as of this encounter
--- OUTSIDE RECORDS SUMMARY | 2025-03-02 05:11 | XMS_ITS | Encounter Summary ---
Author Organization [employer] Address [address] [facility] [address] [place] [address] Care Team Providers Care Marine Electrician Name Role Phone Estella Kelly NP Primary Care Provider [phone] Encounter Details Date Type Department Care Team ([facility] st Contact Info) Description 08/12/2024 Orders Only [facility] [address] [place] [address] Estella Kelly NP [address] [place] [address] Uses control (Primary Dx) Social History Tobacco [...] documented as of this encounter Care Teams Marine Electrician Relationship Specialty Start Date End Date Estella Kelly NP [address] [place] [address] PCP - General Family Medicine 12/15/23 documented as of this encounter
--- OUTSIDE RECORDS SUMMARY | 2025-03-02 05:11 | XMS_ITS | Clinical Summary ---
Author Organization [employer] Address [address] [facility] 7t [place] [address] Care Team Providers Care Sales Representative Printing Name Role Phone Estella Kelly NP Primary Care Provider [phone] Allergies No known active allergies Medications * This document contains information received from the source organization and may not represent a complete record from that organization. medroxyPROGESTERon e (Depo-Provera) 150 MG/ML injection Inject 1 mL (150 mg) into the muscle every 3 (three) months. 1 mL 3 4 Active medroxyPROGESTERon e (Depo-Provera) 150 MG/ML injectionIndicatio ns:Encounter for contraceptive management, unspecified type Inject 1 mL (150 mg) into the muscle every 3 (three) months. 1 mL 3 5 05/24/19 26 Active SUMAtriptan (Imitrex) 25 MG tabletIndications: Chronic nonintractable headache, unspecified headache type Take 1 tablet (25 mg) by mouth 1 (one) time if needed for migraine for up to 18 doses. May repeat dose once in 2 hours if no relief. Do not exceed 2 doses in 24 hours. Lie down for at least 30 mins after taking Take with naproxen 9 tablet 1 5 Active albuterol 108 (90 Base) MCG/ACT inhalerIndications :Mild intermittent asthma without complication Inhale 2 puffs every 6 (six) hours if needed for wheezing. 18 g 11 5 08/23/19 26 Active sertraline (Zoloft) 25 MG tablet TAKE 2 TABLETS BY MOUTH EVERY DAY 60 tablet 1 5 Active traZODone (Desyrel) 100 MG tablet TAKE 1 TABLET BY MOUTH EVERY DAY AT BEDTIME 30 tablet 1 5 Active ibuprofen 600 MG tabletIndications: Abnormal uterine bleeding TAKE 1 TABLET BY MOUTH THREE TIMES DAILY STARTING 2-3 DAYS BEFORE INJECTION AND FOR 1 WEEK AFTER 42 tablet 1 5 Active Active Problems Problem Noted Date Diagnosed Date [...] & Plan (08/22/2024 12:25 PM EDT): -saw [facility] vascular team 12/08/23. Noted to have spider veins vs venous insufficiency; venous doppler US was ordered which she has not completed -advised to follow-up with vascular to have US completed and further interventions Mixed anxiety and depressive disorder 08/22/2024 Assessment & Plan (10/07/2024 5:57 PM EDT): -declines pharmacological interventions; non pharmacological interventions reviewed -reviewed benefits of healthy diet and routine physical activity -continue coping mechanisms -follow-up as needed Assessment & Plan (08/22/2024 12:27 PM EDT): [...] -consider imaging at f/u pending full PE Persistent depressive disorder 08/22/2024 Assessment & Plan (08/23/2024 9:47 AM EDT): During IBH Consult Yuki presenting with depressed mood, Tearful, crying spells , hopelessness, irritable mood, loss of interests/pleasure , sense of isolation/loneliness , isolating, changes in sleep difficulty falling asleep, psychomotor retardation, fatigue/loss of energy, worthlessness, difficulty concentrating and excessive worry/anxiety, difficulty controlling worry, anxiety/worry associated to restlessness and/or feeling keyed-up/On edge , easily fatigued , difficulty concentrating and/or mind going blank , irritability, and sleep disturbance difficulty falling asleep, and Fear ; for a period of 18+ mo, for most or all symptoms in the context of unable to identify significant stressors. Pt reported she has being struggling with depressive mood over the last years. Her sense of loneliness, hopelessness and difficulty controlling her thoughts have been identified as main presenting concern. Pt was on medication before but due to side effects she had to discontinued. BETTY (generalized anxiety disorder) 08/22/2024 Assessment & Plan (10/11/2024 9:44 AM EDT): During IBH Consult Yuki presenting with excessive worry/anxiety, difficulty controlling worry, anxiety/worry associated to restlessness and/or feeling keyed-up/On edge , easily fatigued , difficulty concentrating and/or mind going blank , irritability, muscle tension , and sleep disturbance difficulty falling asleep, Fear , and sense of dread ; for a period of 18+ mo, for most or all symptoms in the context of unable to identify significant stressors. Pt reports her anxiety is still there and present on and off. She is practicing breathing exercises and coping strategies when he anxiety increases. Not willing to start medication due to strong side effects in the past. Yuki was open to explore her willingness to start treatment and finds herself in the pre-contemplation stage. Information give for [facility] centers and [facility] BH department. Assessment & Plan (08/23/2024 9:47 AM EDT): During IBH Consult Yuki presenting with depressed mood, Tearful, crying spells , hopelessness, irritable mood, loss of interests/pleasure , sense of isolation/loneliness , isolating, changes in sleep difficulty falling asleep, psychomotor retardation, fatigue/loss of energy, worthlessness, difficulty concentrating and excessive worry/anxiety, difficulty controlling worry, anxiety/worry associated to restlessness and/or feeling keyed-up/On edge , easily fatigued , difficulty concentrating and/or mind going blank , irritability, and sleep disturbance difficulty falling asleep, and Fear ; for a period of 18+ mo, for most or all symptoms in the context of unable to identify significant stressors. Pt reported she has being struggling with depressive mood over the last years. Her sense of loneliness, hopelessness and difficulty controlling her thoughts have been identified as main presenting concern. Pt was on medication before but due to side effects she had to discontinued. Bacterial vaginosis 11/18/2023 Assessment & Plan (08/22/2024 [...] sleeping 12/16/2022 Vitamin D deficiency 12/16/2022 Encounters Date Type Department Care Team Description 03/01/2025 2:30 PM EST Office Visit [facility] [address] [place] [phone] Della Hoskins FNP Vaginal discharge (Primary Dx) 03/01/2025 Travel 03/01/2025 Telephone [facility] [address] [place] [phone] Estella Kelly NP Nurse Triage 01/23/2025 Refill [facility] [address] [place] [address] Estella Kelly NP Abnormal uterine bleeding 01/16/2025 Refill [facility] [address] [place] [address] Estella Kelly NP Abnormal uterine bleeding 01/12/2025 Refill [facility] [address] [place] [address] Estella Kelly NP Abnormal uterine bleeding 12/31/2024 Refill [facility] [address] [place] [address] Estella Kelly NP 12/05/2024 Refill [facility] [address] [place] [address] Estella Kelly, [place] Mild intermittent asthma without complication; Abnormal uterine bleeding from Last 3 Months Immunizations Immunization Administration Dates Next Due DTaP 02/23/2006, 6,05/31/2003,08/31,2002,2002 [...] Moderna Covid-19 Vaccine 6+ Bivalent 07/18/2022 Novel [id number], preservative-free 04/20/2009,02/24/2009 Pneumococcal Conjugate PCV 7 2002,09/01/19 [...] Mass Index 31.46 03/01/2025 2:30 PM EST Plan of Treatment Health Maintenance Due Date Last Done Comments Meningococcal B Vaccine (1 of 2 - Standard) 2018 Pneumococcal Vaccine: Pediatrics (0 to 5 Years) and At-Risk Patients (6 to 49) Years (1 of 2 - PCV) 2021 2002, 2002, 2002 COVID-19 Vaccine ( season) 2024 07/18/2022, 05/29/2021, 09/01/2020, Additional history exists Influenza Vaccine (#1) 2024 , 03/16/2020, 01/21/2019, Additional history exists Depression Monitoring 02/22/2025 08/22/2024, 025 Family Planning (PISQ) 05/27/2025 05/27/2024 Alcohol/Substance Use Screening 08/22/2025 08/22/2024 Chlamydia and Gonorrhea Screening 08/22/2025 03/01/2025, 08/22/2024, 12/30/2023, Additional history exists Disability Screening 08/22/2025 08/22/2024 SDOH Screening 08/22/2025 08/22/2024 Tobacco Screening 11/03/2025 11/03/2024 Pap Smear 05/04/2026 05/04/2023, 05/04/2023 DTaP/Tdap/Td Vaccines [...] Vaccine Completed 01/21/2019, 015 HIV Screening Completed 08/22/2024, 12/13, 12/16/2022, Additional history exists Hepatitis A Vaccines Completed 08/22/2024, 03/16/2023, 04/26/2014 Hepatitis C Screening Completed 08/22/2024 , 01/04/2024, 12/16/2022, Additional history exists RSV under 20 months Aged Out No [...] Routine 03/01/2025 2:30 PM EST Vaginal discharge HEPATITIS C AB W/REFL TO HCV RNA, QN, PCR Routine 08/22/2024 12:21 PM EDT Routine screening for STI (sexually transmitted infection) HIV 1/2 ANTIGEN/ANTIBODY, FOURTH GENERATION W/RFL Routine 08/22/2024 12:21 PM EDT Routine screening for STI (sexually transmitted infection) IMAGE-GUIDED PAP W/AGE BASED SCR,W/CT/NG/TRICH Routine 05/04/2023 2:09 PM EST Routine cervical smear Screening examination for venereal disease from Last 3 Months or Most Recently Relevant to Health Maintenance Results * (ABNORMAL) POCT Urinalysis (03/01/2025 2:47 [...] Media Lot # [id number] Lot# Expiration Date [id number] Urine (Urine, Random) 03/01/2025 2:47 PM EST [employer] POINT OF CARE TEST ENTER/EDIT ORDERABLES Final Result * (ABNORMAL) Bacterial Vaginosis Panel (03/01/2025 2:30 PM EST) TRICHOMONAS VAGINALIS DETECTION BY PCR DETECTED(A) Not Detect [facility] BACTERIAL VAGINOSIS DETECTION BY PCR NEGATIVE Negative [facility] Comment:The BV organism targ ets [...] GROUP DETECTION BY PCR DETECTED(A) Not Detect [facility] Brandi glab krusei PCR NOT DETECTED Not Detect [facility] Swab Vaginal structure / Unknown 03/01/2025 2:30 PM EST 03/01/2025 6:31 PM EST [facility] LAB MICROBIOLOGY - GENERAL ORD ERABLES Final Result [facility] [address] [place] [address] [phone] * Chlamydia/N. Gonorrhoeae RNA, TMA, Vaginal (03/01/2025 2:30 PM EST) CT PCR NOT DETECTED Not Detect. [facility] Comment:A not detected test result [...] psychologicalconsequences. NG PCR NOT DETECTED Not Detect. [facility] Comment:A not detected test result [...] 2:30 PM EST 03/01/2025 6:31 PM EST us Della Hoskins ADMISSIONS CLERK LAB MICROBIOLOGY - GENERAL ORD ERABLES Final Result [facility] [address] [place] [address] [phone] * Hepatitis C Antibody with Reflex to HCV, RNA, Quantitative, Real-Time PCR (08/22/2024 12:21 PM EDT) Hepatitis C Antibody Nonreactive Nonreactive [facility] Comment:Antibodies to HCV no t detected; does not exclude early acuteHCV infection. Blood Venous blood specimen / Unknown 08/22/2024 12:21 PM EDT 08/22/2024 1:19 PM EDT Estella Kelly RING MAKING MACHINE OPERATOR LAB BLOOD ORDERABLES Final Resu lt Performing Organization Address City/[facility]/ZIP Co de Phone Number [facility] [address] [place] [address] [phone] * HIV-1/2 Antigen and Antibodies, Fourth Generation, with Reflexes (08/22/2024 12:21 PM EDT) HIV AB/AG Nonreactive Nonreactive [facility] Comment:HIV-1 p24 Ag and/or HIV-1/HIV-2 Ab not detected.A test result that is nonreactive does not exclude thepossibility of exposure to or infection with HIV-1 and/orHIV-2. Nonreactive results in this assay for individualswith prior exposure to HIV-1 and/or HIV-2 may be due toantigen and antibody levels that are below the limit ofdetection of this assay.The [employer] HIV Ag/Ab Combo assay result andsupplemental assay results should be interpreted inconjunction with the patient's clinical presentation,history and other laboratory results. If the results areinconsistent with clinical evidence, additional testing issuggested to confirm the result. Blood Venous blood specimen / Unknown 08/22/2024 12:21 PM EDT 08/22/2024 1:19 PM EDT Estella Kelly RING MAKING MACHINE OPERATOR LAB BLOOD ORDERABLES Final Resu lt [facility] [address] [place] [address] [phone] * Image-Guided Pap with Age-Based Screening??with CT/NG,??Trichomonas (05/04/2023 2:09 PM EST) Trichomonas (NAAT) NOT DETECTED NOT DETECTED [facility] Comment:The analytical perfo rmance characteristics of thisassay have been determined by [employer]. Themodifications have not been cleared or approved bythe FDA. This assay has been validated pursuant to theCLIA regulations and is used for clinical purposes.For additional information, please refer tohttp://education.PumpUp/faq/Trichomonastma(This link is being provided for information/educational purposes only.)THIS TEST WAS PERFORMED AT:[facility] [place] [phone] TORRES MD CTNG Ref Lab NOT DETECTED NOT DETECTED [facility] NG Ref Lab NOT DETECTED NOT DETECTED [facility] Pap Vial 05/04/2023 2:09 PM EST 05/06/2023 11:32 AM EST Danika PETERSON LAB CYTOLOGY ORDERABLES F inal Result [facility] [address] [place] [address] [phone] from Last 3 Months or Most Recently Relevant to Health Maintenance Insurance [employer] Care Teams Sales Representative Printing Relationship Specialty Start Date End Date Estella Kelly NP [address] [place] [address] PCP - General Family Medicine 12/15/23
--- OUTSIDE RECORDS SUMMARY | 2025-03-02 05:11 | XMS_ITS | Encounter Summary ---
Author Organization [employer] Address [address] 7t [place] [address] Care Team Providers Care Supply Room Clerk Name Role Phone Estella Kelly NP Primary Care Provider [phone] Encounter Details Date Type Department Care Team ([facility] st Contact Info) Description 11/02/2024 Orders Only [facility] [address] [place] [address] Estella Kelly NP [address] [place] [address] Encounter for management and injection of depo-Provera (Primary Dx); Encounter for contraceptive management, unspecified type Social History Tobacco Use Types Packs/Day Years [...] Diagnoses Diagnosis Encounter for contraceptive management, unspecified type documented in this encounter Additional Health Concerns Assessment Noted Time PHQ-9 Depression Total Score: 12 025 11:04 AM EDT documented as of this encounter Care Teams Supply Room Clerk Relationship Specialty Start Date End Date Estella Kelly NP [address] [place] [address] PCP - General Family Medicine 12/15/23 documented as of this encounter
--- OUTSIDE RECORDS SUMMARY | 2025-03-02 05:11 | XMS_ITS | Encounter Summary ---
Author Organization [employer] Address [address] [facility] 7t [place] [address] Care Team Providers Care Slitter Operator Name Role Phone Estella Kelly NP Primary Care Provider [phone] Reason for Visit * Reason Onset Date Comments Med Refill 10/05/2024 Encounter Details Date Type Department Care Team (Late st Contact Info) Description 10/05/2024 Refill [facility] [address] [place] [address] Estella Kelly NP [address] [place] [address] Social History Tobacco Use Types Packs/Day Years [...] documented as of this encounter Care Teams Slitter Operator Relationship Specialty Start Date End Date Estella Kelly NP [address] [place] [address] PCP - General Family Medicine 12/15/23 documented as of this encounter
--- OUTSIDE RECORDS SUMMARY | 2025-03-02 05:11 | XMS_ITS | Encounter Summary ---
Author Organization [employer] Address [address] [facility] [address] 7[address] [place] [address] Care Team Providers Care Marking Clerk Name Role Phone Nellie LoganP Primary Care Provider [phone] Estella Kelly NP Primary Care Provider [phone] Reason for Visit * Reason Comments Med Refill Encounter Details Date Type Department Care Team ([facility] st Contact Info) Description 10/14/2023 Refill [facility] [address] [place], [place] [phone] Name, MD Mark [address] [place], [place] [phone] Social History Tobacco Use Types Packs/Day Years [...] documented as of this encounter Care Teams Marking Clerk Relationship Specialty Start Date End Date Nellie Logan FNP [address] [place] [address] PCP - General Family Medicine 01/13/23 12/14/23 Estella Kelly NP [address] [place] [address] PCP - General Family Medicine 12/15/23 documented as of this encounter
--- OUTSIDE RECORDS SUMMARY | 2025-03-02 05:12 | XMS_ITS | Encounter Summary ---
Author Organization [employer] Address [address] [facility] 7t [place] [address] Care Team Providers Care Learning Disabilities Resource Teacher Name Role Phone Estella Kelly NP Primary Care Provider [phone] Reason for Visit * Reason Onset Date Comments Med Refill 08/30/2024 Encounter Details Date Type Department Care Team (Late st Contact Info) Description 08/30/2024 Refill [facility] [address] [place] [address] Estella Kelly NP [address] [place] [address] Social History Tobacco Use Types Packs/Day Years [...] documented as of this encounter Care Teams Learning Disabilities Resource Teacher Relationship Specialty Start Date End Date Estella Kelly NP [address] [place] [address] PCP - General Family Medicine 12/15/23 documented as of this encounter
--- OUTSIDE RECORDS SUMMARY | 2025-03-02 05:12 | XMS_ITS | Encounter Summary ---
Author Organization [employer] Address [address] [facility] 7t [place] [address] Care Team Providers Care Round Cutter Operator Name Role Phone Nellie Logan Primary Care Provider [phone] Estella Kelly NP Primary Care Provider [phone] Encounter Details Date Type Department Care Team (Late st Contact Info) Description 06/17/2023 Orders Only [facility] [address] [place] [address] Nellie Logan FNP [address] [place] [address] Social History Tobacco Use Types Packs/Day Years [...] documented as of this encounter Care Teams Round Cutter Operator Relationship Specialty Start Date End Date Nellie Logan FNP [address] [place] [address] PCP - General Family Medicine 01/13/23 12/14/23 Estella Kelly NP [address] [place] [address] PCP - General Family Medicine 12/15/23 documented as of this encounter
--- OUTSIDE RECORDS SUMMARY | 2025-03-02 05:12 | XMS_ITS | Encounter Summary ---
Author Organization [employer] Address [address] [facility] 7t [place] [address] Care Team Providers Care Secondary School Teacher Librarian Name Role Phone Nellie LoganP Primary Care Provider [phone] Estella Kelly NP Primary Care Provider [phone] Encounter Details Date Type Department Care Team (Late st Contact Info) Description 03/18/2023 Orders Only [facility] [address] [place] [address] Nellie Logan FNP [address] [place] [address] Social History Tobacco Use Types Packs/Day Years [...] documented as of this encounter Care Teams Secondary School Teacher Librarian Relationship Specialty Start Date End Date Nellie Logan FNP [address] [place] [address] PCP - General Family Medicine 01/13/23 12/14/23 Estella Kelly NP [address] [place] [address] PCP - General Family Medicine 12/15/23 documented as of this encounter
--- OUTSIDE RECORDS SUMMARY | 2025-03-02 05:12 | XMS_ITS | Encounter Summary ---
Author Organization [employer] Address [address] [facility] 7t [place] [address] Care Team Providers Care Manager System Name Role Phone Estella Kelly NP Primary Care Provider [phone] Reason for Visit * Reason Onset Date Comments Med Refill 01/29/2024 Encounter Details Date Type Department Care Team (Late st Contact Info) Description 01/29/2024 Refill [facility] [address] [place] [address] Estella Kelly NP [address] [place] [address] Social History Tobacco Use Types Packs/Day Years [...] documented as of this encounter Care Teams Manager System Relationship Specialty Start Date End Date Estella Kelly NP [address] [place] [address] PCP - General Family Medicine 12/15/23 documented as of this encounter
--- OUTSIDE RECORDS SUMMARY | 2025-03-02 05:12 | XMS_ITS | Encounter Summary ---
Author Organization [employer] Address [address] 7[address] [place] [address] Care Team Providers Care Animal Husbandman Name Role Phone Estella Kelly NP Primary Care Provider [phone] Reason for Visit * Reason Comments Med Refill Encounter Details Date Type Department Care Team ([facility] Contact Info) Description 02/27/2024 Refill [facility] [address] [place] [address] Estella Kelly NP [address] [place] [address] Social History Tobacco Use Types Packs/Day Years [...] documented as of this encounter Care Teams Animal Husbandman Relationship Specialty Start Date End Date Estella Kelly NP [address] [place] [address] PCP - General Family Medicine 12/15/23 documented as of this encounter
--- OUTSIDE RECORDS SUMMARY | 2025-03-02 05:12 | XMS_ITS | Encounter Summary ---
Author Organization [employer] Address [address] [facility] [address]t [place] [address] Care Team Providers Care Medical Records Manager Name Role Phone Nellie Logan Primary Care Provider [phone] Estella Kelly NP Primary Care Provider [phone] Encounter Details Date Type Department Care Team (Late st Contact Info) Description 12/13/2023 Orders Only [facility] PEDS [address] [place] [address] Nellie Logan FNP [address] [place] [address] Social History Tobacco Use Types Packs/Day Years [...] documented as of this encounter Care Teams Medical Records Manager Relationship Specialty Start Date End Date Nellie Logan FNP [address] [place] [address] PCP - General Family Medicine 01/13/23 12/14/23 Estella Kelly NP [address] [place] [address] PCP - General Family Medicine 12/15/23 documented as of this encounter
--- OUTSIDE RECORDS SUMMARY | 2025-03-02 05:12 | XMS_ITS | Encounter Summary ---
Author Organization [employer] Address [address] [facility] 7t [place] [address] Care Team Providers Care Tile Picker Name Role Phone Estella Kelly NP Primary Care Provider [phone] Reason for Visit * Reason Onset Date Comments Med Refill 02/01/2024 Encounter Details Date Type Department Care Team (Late st Contact Info) Description 02/01/2024 Refill [facility] [address] [place] [address] Estella Kelly NP [address] [place] [address] Social History Tobacco Use Types Packs/Day Years [...] documented as of this encounter Care Teams Tile Picker Relationship Specialty Start Date End Date Estella Kelly NP [address] [place] [address] PCP - General Family Medicine 12/15/23 documented as of this encounter
--- OUTSIDE RECORDS SUMMARY | 2025-03-02 05:12 | XMS_ITS | Encounter Summary ---
Author Organization [employer] Address [address] [facility] 7t [place] [address] Care Team Providers Care Parachute Supervisor Name Role Phone Estella Kelly NP Primary Care Provider [phone] Reason for Visit * Reason Onset Date Comments Med Refill 03/07/2024 Encounter Details Date Type Department Care Team (Late st Contact Info) Description 03/07/2024 Refill [facility] [address] [place] [address] Name, MD Mark [address] [place] [address] Social History Tobacco Use Types Packs/Day Years [...] documented as of this encounter Care Teams Parachute Supervisor Relationship Specialty Start Date End Date Estella Kelly NP [address] [place] [address] PCP - General Family Medicine 12/15/23 documented as of this encounter
== END 2025-03-01 18:30 | disposition home or self-care (01) ==
LOC: HO.HHCLNP 18:29
PROVIDERS: Visit Provider Nurse Practitioner Family
DX: Z20.2 Contact with and (suspected) exposure to infections with a predominantly sexual mode of transmission (principal); N89.8 Other specified noninflammatory disorders of vagina
CPT/HCPCS: 81515; 87086; 87491; 87591